=== PATIENT | female | born 1950 | race Caucasian/White ===

== ENCOUNTER → 2018-04-22 13:54 | Outpatient (CLI) | payer OTHER, MEDICAID, SELFPAY ==
--- NOTE | 2018-04-22 | DI.US.S_ITS ---
PROCEDURE: US THYROID INDICATIONS: THYROID NODULE TECHNIQUE: Real-time scanning was performed of the thyroid gland, with image documentation. COMPARISON: None. FINDINGS: Right: Right thyroid lobe measures 4.5 x 2.1 x 2.1 cm in size. 1 x 1 x 0.9 cm heterogeneously hypoechoic nodule is seen in midpole of right thyroid lobe. 1.2 x 1.9 x 1.1 cm heterogeneously hypoechoic solid-appearing nodule is noted in lower pole of right thyroid lobe. Vascularities are seen within above-mentioned right thyroid lobe nodules. Left: Left thyroid lobe measures 4.9 x 2.4 x 2 cm in size. 2.4 x 2 x 1.7 cm heterogeneously hypoechoic and solid-appearing nodule is noted in mid to lower pole of left thyroid lobe. Vascularity is seen within left thyroid lobe nodule. Isthmus: Isthmus measures 2 mm in thickness. No gross abnormality seen. IMPRESSION: 1. Bilateral solid-appearing hypoechoic nodules more prominent in size on the left side mid to lower pole. Given its size, consider fine needle aspiration of the left thyroid lobe nodule for more definitive diagnosis. Dictated by: Jorge Young M.D. on 04/22/2018 at 16:04 Approved by: Jorge Young M.D. on 04/22/2018 at 16:10
== END ==
PROVIDERS: PCP Nurse Practitioner Family; Visit Provider Nurse Practitioner Family
DX: E04.2 Nontoxic multinodular goiter (principal)
CPT/HCPCS: 76536

== ENCOUNTER → 2018-05-08 09:33 | Outpatient (CLI) | payer OTHER, MEDICAID, SELFPAY ==
--- NOTE | 2018-05-08 | DI.MG.S_ITS ---
UNILATERAL RIGHT DIGITAL SCREENING MAMMOGRAM 3D/2D WITH CAD POST MASTECTOMY: 05/08/2018 CLINICAL: Routine screening. Personal history of left breast cancer. Comparison is made to exams dated: 11/25/2012 mammogram, 07/16/2013 breast MRI, and 12/25/2012 breast MRI - [facility]. The tissue of the right breast is predominantly fatty. Current study was also evaluated with a Computer Aided Detection (CAD) system. There are grouped calcifications in the right breast upper outer aspect posterior depth. No other significant masses or calcifications are seen in the breast. IMPRESSION: INCOMPLETE: NEEDS ADDITIONAL IMAGING EVALUATION The grouped calcifications in the right breast are indeterminate. Additional views with possible ultrasound are recommended. This exam was interpreted at Station ID: [id number]. NOTE: For mammograms, a report in lay terms will be sent to the patient. Approximately 15% of breast malignancies will not be visualized mammographically. In the management of a palpable breast mass, a negative mammogram must not discourage biopsy of a clinically suspicious lesion. Electronically Signed By: Curt Bolton M.D. ecl/:05/08/2018 20:36:21 letter sent: Additional Imaging Needed ACR BI-RADS Category 0: Incomplete [id number]
--- NOTE | 2018-05-08 | PATH_ITS ---
Note [facility] Accession Number: [id number] TESTS RESULT FLAG UNITS REF RANGE LAB 01 LEFT THYROID NODULE DIAGNOSIS: 02 LEFT THYROID NODULE BETHESDA CATEGORY III. ATYPIA OF UNDETERMINED SIGNIFICANCE. COMMENT Most of the follicular cells in this specimen are benign appearing in a backgroud of scattered colloid and macrophages. A few groups of follicular cells show mild nuclear pleomorphism and mildly crowded nuclei with some nuclear overlapping. No nuclear clearing, grooves or inclusions are identified. A repeat aspirate after an appropriate interval of observation might be helpful if clinically indicated. This specimen will be fowarded for ThyraMIR/ThyGenX testing and the results reported separately. Pathologist ICD10: 02 R89.6 02 ADDENDUM REASON: This addendum is issued to report the results of ThyraMIR/ThyGenX assay performed at [facility], [place] (as [id number]); please see that report for additional details. The above diagnosis remains unchanged. . THYAMIR/THYGENX RESULTS SUMMARY: Left Thyroid FNA Nodule is very highly likely benign. . Test Results: Left Thyroid FNA ThyGenX Oncogene Panel Status: No mutations detected ThyraMIR microRNA Assembler [place] Pipes Status: Negative . Comment: Thyroid nodules showing indeterminate cytology with negative ThyGenX and negative ThyraMIR status are highly likely to be benign (94% likelihood of being benign. . . I05/23/2018 Addendum Electronically Signed by Guido Parker MD, PhD, Pathologist 02 Edyta Niño MD, Pathologist NPI- [id number] Po Peters, Sustainability Engineer ([facility]) 01 30 CC, COLORLESS, CLEAR RECEIVED: 5 ALCOHOL FIXED AND 5 QUICK STAINED SLIDES. /VDU FLAG LEGEND: L-Low Normal,H-High Normal,LL-Alert Low,HH-Alert High <-Panic Low,>-Panic High,A-Abnormal,AA-Critical Abnormal Performed at: 01 =Z [facility] [address] [place] [address] [address], [place] [address] Josue Jha MD, 02 [facility] [place] [address] [place] [id number] Jose Armando Sawant MD, Performed at: [address] [facility] [address], [place], [place] [id number] MD Josue Jha MD Phone: [phone]
--- NOTE | 2018-05-08 | DI.US.S_ITS ---
PROCEDURE: US FINE NEEDLE ASPIRATION INDICATIONS: LEFT THYROID NODULE TECHNIQUE: The indications, alternatives, benefits, risks, and complications of the procedure were explained to the patient. Written informed consent was obtained and placed in the chart. The thyroid region was examined sonographically and a site was chosen for ultrasound guided percutaneous sampling. The skin was prepared and draped in the usual fashion, and anesthetized with 1% lidocaine infiltrated from the skin down to the thyroid gland. Multiple passes were then performed, with contents emptied into an appropriate pathology specimen container. A bandage was applied to the area of access at completion of the study. COMPARISON: None. FINDINGS: Location(s) of lesion(s) sampled: Left thyroid lobe dominant nodule [place]: 25 gauge hypodermic needles. Number of passes: 6 Medications: 1% lidocaine for local anaesthesia. Complications: None. IMPRESSION: Successful ultrasound-guided thyroid nodule fine needle aspiration, with cytology results pending. Please see chart below for management recommendations based on cytology results. [place] [facility] ReportingRecommendationsNon-diagnostic* Repeat US-guided FNA, with on-site cytology evaluation if possible. * Repeated non-diagnostic nodules without high suspicion US features: close observation vs surgical consult. * Consider surgery if nodule has high suspicion US features, grows >20% in 2 dimensions on followup, or patient has clinical risk factors for malignancy. Benign* If nodule has high suspicion US features: repeat US and FNA within 12 months. * If nodule has low to intermediate suspicion US features: repeat US at 12-24 months. If nodule grows (20% increase in at least 2 dimensions, with minimal increase of 2 mm or >50% change in volume), or development of new suspicious US features, then repeat FNA or continue followup. * If nodule has very low suspicion US features: followup US at >24 months. Atypia of undetermined significance, follicular lesion of undetermined significanceRepeat FNA, molecular testing, followup US, or surgical consult.Follicular neoplasm, suspicious for follicular neoplasmSurgical consult; also consider molecular testing. Suspicious for malignancySurgical consult.MalignantSurgical consult. Dictated by: Juan Hussein M.D. on 05/08/2018 at 14:57 Approved by: Juan Hussein M.D. on 05/08/2018 at 14:58
== END ==
PROVIDERS: PCP Nurse Practitioner Family; Visit Provider Nurse Practitioner Family
DX: Z12.31 Encounter for screening mammogram for malignant neoplasm of breast (principal); E04.1 Nontoxic single thyroid nodule; Z85.3 Personal history of malignant neoplasm of breast; M85.851 Other specified disorders of bone density and structure, right thigh; Z78.0 Asymptomatic menopausal state; Z82.62 Family history of osteoporosis
CPT/HCPCS: 10022; 76942; 77063; 77065; 77080

== ENCOUNTER → 2018-05-27 09:15 | Outpatient (CLI) | payer OTHER, MEDICAID, SELFPAY ==
--- NOTE | 2018-05-27 | DI.MG.S_ITS ---
UNILATERAL RIGHT DIGITAL DIAGNOSTIC MAMMOGRAM 3D/2D WITH ADDITIONAL VIEWS: 05/27/2018 CLINICAL: Additional evaluation requested from prior study. Personal history of breast cancer. Comparison is made to exams dated: 05/08/2018 mammogram - [facility], 04/08/2013 ultrasound, and 11/28/2012 mammogram - [facility]. The tissue of the right breast is heterogeneously dense. This may lower the sensitivity of mammography. There are clustered punctate calcifications in the right breast at 11 o'clock posterior depth. No other significant masses or calcifications are seen in the breast. IMPRESSION: PROBABLY BENIGN The clustered punctate calcifications in the right breast are probably benign. A follow-up mammogram in 6 months is recommended to demonstrate stability. This exam was interpreted at Station ID: [id number]. NOTE: For mammograms, a report in lay terms will be sent to the patient. Approximately 15% of breast malignancies will not be visualized mammographically. In the management of a palpable breast mass, a negative mammogram must not discourage biopsy of a clinically suspicious lesion. Electronically Signed By: Kimberly copeland/:05/27/2018 09:57:23 letter sent: Followup Recommended ACR BI-RADS Category 3: Probably benign [id number]
== END ==
PROVIDERS: PCP Nurse Practitioner Family; Visit Provider Nurse Practitioner Family
DX: R92.1 Mammographic calcification found on diagnostic imaging of breast (principal); Z85.3 Personal history of malignant neoplasm of breast
CPT/HCPCS: 77065; G0279

== ENCOUNTER → 2018-12-09 08:50 | Outpatient (CLI) | payer OTHER, MEDICAID, SELFPAY ==
--- NOTE | 2018-12-09 | DI.MG.S_ITS ---
UNILATERAL RIGHT DIGITAL DIAGNOSTIC MAMMOGRAM 3D/2D SHORT-TERM FOLLOW-UP POST MASTECTOMY: 12/09/2018 CLINICAL: Patient returns for a 6 month follow up of the right breast. Family history of breast cancer. Personal history of breast cancer. Comparison is made to exams dated: 05/27/2018 mammogram, 05/08/2018 mammogram - [facility], and 11/28/2012 mammogram - [facility]. The tissue of right breast is heterogeneously dense. This may lower the sensitivity of mammography. There are a clustered punctate calcifications in the right breast at 11 o'clock posterior depth. These are not significantly changed. No evidence for associated architectural distortion or developing asymmetry. No other significant masses or calcifications are seen in the breast. IMPRESSION: PROBABLY BENIGN The clustered punctate calcifications in the right breast are not significantly changed in mammographic appearance and are probably benign. A follow-up right mammogram in 6 months is recommended to demonstrate stability. This exam was interpreted at Station ID: [id number]. NOTE: For mammograms, a report in lay terms will be sent to the patient. Approximately 15% of breast malignancies will not be visualized mammographically. In the management of a palpable breast mass, a negative mammogram must not discourage biopsy of a clinically suspicious lesion. Electronically Signed By: Tim Molina M.D. aty/:12/09/2018 09:45:32 letter sent: Followup Recommended ACR BI-RADS Category 3: Probably benign [id number]
== END ==
PROVIDERS: PCP Nurse Practitioner Family; Visit Provider Nurse Practitioner Family
DX: R92.1 Mammographic calcification found on diagnostic imaging of breast (principal); Z85.3 Personal history of malignant neoplasm of breast; Z80.3 Family history of malignant neoplasm of breast
CPT/HCPCS: 77065; G0279

== ENCOUNTER → 2019-06-27 12:44 | Outpatient (CLI) | payer OTHER, MEDICAID, SELFPAY ==
--- NOTE | 2019-06-27 | DI.MG.S_ITS ---
UNILATERAL RIGHT DIGITAL DIAGNOSTIC MAMMOGRAM 3D/2D SHORT-TERM FOLLOW-UP POST MASTECTOMY: 06/27/2019 CLINICAL: Patient returns for a 6 month follow up of the right breast. Comparison is made to exams dated: 12/09/2018 mammogram, 05/27/2018 mammogram, and 05/08/2018 mammogram - [facility]. The tissue of right breast is heterogeneously dense. This may lower the sensitivity of mammography. Previously identified grouped punctate calcifications in the superior lateral right breast at posterior depth (described as being near 11 o'clock posterior depth on comparison exam of 12/09/18) are stable to prior comparison exams. IMPRESSION: PROBABLY BENIGN Previously identified grouped punctate calcifications in the superior lateral right breast at posterior depth (described as being near 11 o'clock posterior depth on comparison exam of 12/09/18) are stable to prior comparison exams. A follow-up mammogram in 6 months is recommended to demonstrate continued stability. The patient was advised to monitor her breasts and to return sooner for reevaluation if she feels anything grow or change in her breasts. This exam was interpreted at Station ID: [id number]. NOTE: For mammograms, a report in lay terms will be sent to the patient. Approximately 15% of breast malignancies will not be visualized mammographically. In the management of a palpable breast mass, a negative mammogram must not discourage biopsy of a clinically suspicious lesion. Electronically Signed By: Curt Bolton M.D. ecl/:06/27/2019 14:35:58 letter sent: Followup Recommended ACR BI-RADS Category 3: Probably benign [id number]
== END ==
PROVIDERS: PCP Nurse Practitioner Family; Visit Provider Nurse Practitioner Family
DX: R92.8 Other abnormal and inconclusive findings on diagnostic imaging of breast (principal); R92.1 Mammographic calcification found on diagnostic imaging of breast
CPT/HCPCS: 77065; G0279

== ENCOUNTER → 2019-09-01 08:40 | Outpatient (CLI) | payer OTHER, MEDICAID, SELFPAY ==
--- NOTE | 2019-09-01 | DI.US.S_ITS ---
ULTRASOUND OF LEFT BREAST AND AXILLA: 09/01/2019 CLINICAL: Palpable left breast lump at mastectomy site. Comparison is made to exams dated: 07/16/2013 breast MRI, 12/25/2012 breast MRI, 11/28/2012 mammogram, and 11/25/2012 mammogram - [facility]. Color flow and real-time ultrasound of the left breast axilla were performed. Kraft scale images of the real-time examination were reviewed. The patient is status post mastectomy left breast. Superior to the left mastectomy scar at the patient directed area of palpable concern, there are two adjacent oval, hypoechoic masses measuring 10mm x 9mm x 9mm and 12 mm x7 mm x 8mm, respectively. There is adjacent vascularity. No posterior acoustic features. Visualized regional lymph nodes appear normal. No significant abnormalities were seen sonographically in the left axilla. IMPRESSION: SUSPICIOUS OF MALIGNANCY Two adjacent oval hypoechoic masses noted superior to left mastectomy scar and correlating with patient directed area of palpable concern are suspicious for tumor recurrence. No axillary adenopathy seen. Recommend ultrasound guided biospy for further evaluation. Findings and recommendations were discussed with the patient by Dr. Hussein during today's visit. This exam was interpreted at Station ID: [id number]. Electronically Signed By: Tim Molina M.D. aty/:09/01/2019 10:30:25 letter sent: Biopsy Required Ultrasound BI-RADS: 4c High suspicion of malignancy
== END ==
PROVIDERS: PCP Nurse Practitioner Family; Visit Provider Nurse Practitioner Family
DX: N63.20 Unspecified lump in the left breast, unspecified quadrant (principal); Z90.12 Acquired absence of left breast and nipple
CPT/HCPCS: 76642

== ENCOUNTER → 2019-09-19 10:16 | Outpatient (CLI) | payer OTHER, MEDICAID, SELFPAY ==
--- NOTE | 2019-09-19 | DI.US.S_ITS ---
MULTIPLE ULTRASOUND GUIDED BIOPSIES LEFT BREAST USING VACUUM DEVICE WITH MARKING DEVICES INSERTED: 09/19/2019 CLINICAL: Palpable left breast lump. Palpable left breast lump. Post left mastectomy. PATIENT CONSENT: Risks (minor bleeding, infection, vasovagal reaction and repeat procedure), benefits and alternatives were explained to the patient and written informed consent was obtained. Correlation is made to exam dated: 09/01/2019 [facility]. An ultrasound guided biopsy using real-time ultrasound was performed for the irregular shaped mass located in the left breast at 1 o'clock posterior depth (designated #1 4 cm above scar). The skin was prepped in the usual manner. Local anesthetic was administered to the access site. A small incision was made in the breast. The abnormality was approached from the lateral aspect. A biopsy needle was placed adjacent to the abnormality under ultrasound guidance. Once the needle was documented to be in the correct location, eight specimens were obtained using the Mammotome biopsy system. A Vision clip was inserted into the biopsy cavity. The specimens were sent to the laboratory for pathological analysis. A second ultrasound guided biopsy using real-time ultrasound was performed for the irregular shaped mass located in the left breast 1 o'clock (designated #2, 5 cm above scar). The skin was prepped in the usual manner. Local anesthetic was administered to the access site. A small incision was made in the breast. The abnormality was approached from the lateral aspect. A biopsy needle was placed adjacent to the abnormality under ultrasound guidance. Once the needle was documented to be in the correct location, seven specimens were obtained using the Mammotome biopsy system. A Celero clip was inserted into the biopsy cavity. The specimens were sent to the laboratory for pathological analysis. IMPRESSION: ULTRASOUND GUIDED BIOPSY MALIGNANT Ultrasound guided biopsy of the mass in the left breast at 1 o'clock posterior depth was successful. Pathology indicates malignant adenocarcinoma (ADCA). Pathology results are concordant with imaging findings. Ultrasound guided biopsy of the mass in the left axillary tail was successful. Pathology indicates malignant adenocarcinoma (ADCA). Pathology results are concordant with imaging findings. This exam was interpreted at Station ID: [id number]. Babatunde ospina,min/:09/24/2019 16:26:05
--- NOTE | 2019-09-19 | PATH_ITS ---
[facility] Accession Number: [id number] . 01 Material submitted: . PART A: breast - LT BREAST MASS 1 4CM ABOVE SCAR PART B: breast - LT BREAST MASS 2 5CM ABOVE SCAR . 01 Diagnosis: A. 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 Prognostic markers (block A1): a. Estrogen receptor status: Positive (99%, Strong). b. Progesterone receptor status: Positive (95%, Strong). c. HER2 status: Equicoval for protein overexpression by immunohistochemistry; Her2 gene amplification by FISH studies are pending and results will be reported in an addendum. See comment. . B. 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 See comment. [facility] 09/23/2019 2144 Local . 01 Comment: The biopsies from parts A and B demonstrate invasive adenocarcinoma into skeletal muscle and are both morphologically similar. No breast glandular tissue is identified in either biopsies. The invasive carcinoma is moderately differentiated ductal adenocarcinoma (Emilie combined histologic grade total score of 7/9, with little or no glandular differentiation (3/3), high nuclear pleomorphism (3/3), and low mitotic activity (1/3)). The findings are consistent with recurrence of the patient's reported breast primary. . 01 Electronically signed: Obi Gupta MD, Pathologist NPI- [id number] . 01 Gross description: . Received two formalin-filled containers, both labeled with the patient's name: A. In a container labeled LT breast mass 1 of 2, the sample is received with a plastic filter in container, sample loose in container and consists of multiple fragments of tissue and blood which measure 2.0 x 1.0 x 0.2 cm in aggregate. The specimen is filtered and entirely submitted in cassette A1. B. In a container labeled LT breast mass 2 of 2, the specimen is received with a plastic filter in container, sample loose in container and consists of multiple portions of tissue and clotted blood which measure 1.5 x 1.0 x 0.2 cm in aggregate. The specimen is entirely submitted in cassette B1. Collection date per container: 09-19-19. No collection time per container. Possible collection time: 12:19. Total fixation time: Approximately 38 hours. ([id number]) /Kenan 09/23/2019 2144 Local . 01 Microscopic: . Predictive marker immunohistochemical studies are performed on block A1 with the invasive carcinoma showing the following results: . Estrogen receptor (SP1): Positive (99% tumor cells staining; staining intensity: Strong). Progesterone receptor (1E2): Positive (95% tumor cells staining; staining intensity: Strong). Her2 (4B5): Equivocal for protein overexpression (2+); Her2 gene amplification studies by FISH are pending and results will be reported in an addendum. . Internal controls for ER and NH are not present (as is expected, no breast glandular tissue identified). . Cold ischemic time is <5 minutes. The scoring criteria for breast biomarkers by immunohistochemistry is based on the ASCO/CAP guidelines (Amanda AC et al J Clin Oncol 2018: 2017 10;36(20):6286-2380 and Usha ME et al, Arch Pathol Lab Med 2009;134(6):907-22). Deparaffinized sections of formalin fixed tissue (along with appropriate positive controls) are incubated with the above antibody(s). Using the automated Bevier stainer, tissue is incubated with the designated antibody which is then localized by a non-biotin, dual polymer detection system. The external controls are reviewed for appropriate reactivity and found to be adequate. Results on the target cell population are indicated above. These tests have not been validated on decalcified tissue. This test was developed and its performance characteristics determined by [employer]. It has not been cleared or approved by the U.S. Food and Drug Administration. The FDA has determined that such clearance or approval is not necessary. This test is used for clinical purposes. It should not be regarded as investigational or for research. . 01 Pathologist provided ICD-10: C50.912 . 01 CPT . 725062, 769634, 124879, 627715, 473046 Performed at: [address] [id number] MD Josue Jha MD Phone: [phone]
== END ==
PROVIDERS: PCP Nurse Practitioner Family; Visit Provider Nurse Practitioner Family
DX: C50.812 Malignant neoplasm of overlapping sites of left female breast (principal); Z17.0 Estrogen receptor positive status [ER+]; Z90.12 Acquired absence of left breast and nipple
CPT/HCPCS: 19083; 19084

== ENCOUNTER 2019-09-19 15:11 | Emergency (ER) | payer OTHER, MEDICAID, SELFPAY ==
[2019-09-19 15:19] VITALS: BP 169/97; PULSE 96; RESP 18; TEMP 35.9; O2SAT 98; BMI 26.5
--- NOTE | 2019-09-19 15:30 | DI.RAD.S_ITS ---
PROCEDURE: XR CHEST 2V INDICATIONS: CHEST XRAY TECHNIQUE: 2 views of the chest were acquired. COMPARISON: None. FINDINGS: Surgical changes and devices: There appears to have been a previous left-sided mastectomy. Lungs and pleura: Lungs are clear. No pleural effusions or pneumothorax. Mediastinum: Mediastinal contours are normal. Heart size is normal. Moderate-sized hiatal hernia is present with an associated air-fluid level. Bones and chest wall: No suspicious bony abnormalities. Soft tissues appear unremarkable. IMPRESSION: No acute cardiopulmonary process is evident. Dictated by: Carlyle Johnson M.D. on 09/19/2019 at 15:05 Approved by: Carlyle Johnson M.D. on 09/19/2019 at 15:06
--- NOTE | 2019-09-19 16:15 | ED.CHESTPAIN ---
HPI - Chest Pain General Chief Complaint: Chest Pain Stated Complaint: recent biopsy on L side chest, CP and site bleedin Time Seen by Provider: 09/19/19 16:15 Source: patient Mode of arrival: Ambulatory Limitations: no limitations History of Present Illness HPI narrative: 69-year-old female comes emergency department with complaint of chest pain. Patient states she had a biopsy this morning at 11:00 a.m. for 2 tumors that were noted in her left chest. Patient states she was sitting at home, she was not active or doing anything about an hour ago and had a sudden onset of chest kind of across her chest that felt sort of like muscles were christie. She states she did feel a bit short of breath. She states movement does seem to kind of bother it but she wasn't moving around when it happened she states she has felt cold while she is in the department but no chills or fever. She walked across the street from her home to hospital and states she did not feel short of breath with that activity. No nausea, no vomiting. She felt a little lightheaded but no syncope or presyncope. Patient states with her prior lumpectomy and mastectomy afterwards she did have syncope in a big drop in her blood pressure so she was concerned that might be part was happening today patient did reach over to check this site and noted that there was some blood from the biopsy site although she states it seems to have stopped. Patient had a lumpectomy in 1998, mastectomy in 2011 she did not have chemo or radiation since then she has had hysterectomy no other past surgical history. She has no history of [place], PE, coronary artery disease no hypertension, dyslipidemia or diabetes. She does not take any medications regularly, no aspirin or other blood thinners. No tobacco, illicit or street drugs. 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 Related Data Home Medications Medication Instructions Recorded Confirmed No Known Home Medications 09/19/19 09/19/19 Allergies Allergy/AdvReac Type Severity Reaction Status Date / Time No Known Drug Allergies Allergy Verified 09/19/19 15:19 Review of Systems Review of Systems ROS Unobtainable: All systems reviewed & are unremarkable except as noted in HPI and below Patient History Medical History (Updated 09/19/19 @ 17:53 by Laura Saucedo DO) Breast cancer (Acute) Surgical History (Updated 09/19/19 @ 16:27 by Laura Saucedo DO) H/O lumpectomy (Acute) H/O mastectomy (Acute) Social History (Updated 09/19/19 @ 16:27 by Laura Saucedo DO) Smoking Status: Never smoker alcohol intake: never substance use type: does not use Smoking Status: Never smoker Substance Use Type: does not use Exam Narrative Exam Narrative: GENERAL: Alert and oriented x three, well-nourished, well-appearing female in mild distress. HEENT: Head normocephalic, atraumatic, EOMI, pupils reactive, face symmetric, moist mucous membranes NECK: Supple, full range of motion CARDIOVASCULAR: Regular rate and rhythm without murmurs, rubs or gallops. Patient has changes to her chest wall consistent with left mastectomy. Patient's incision site bandage was removed. It's no longer actively bleeding. Patient does have a puncture which is a chordoma cm in size little bit jagged which is likely white blood. There's no hematoma, there's no fluid collection or ecchymosis noted. Patient is tender around that area. No swelling of the axilla, underneath the site or elsewhere. No warmth, redness or other drainage noted. Patient does not have any crepitus. RESPIRATORY: Breath sounds equal bilaterally, no wheezes rales or rhonchi. ABDOMEN: Soft, nontender. Normoactive bowel sounds all 4 quadrants. No guarding or rebound, rigidity, no mass : No CVA tenderness EXTREMITIES: Normal range of motion, no clubbing or edema. Neurovascularly intact NEUROLOGICAL: Cranial nerves II through XII grossly intact. Moving all extremities SKIN: Warm, dry, no petechiae, no rashes or lesions. Initial Vital Signs Initial Vital Signs: Vital Signs Temperature 96.7 F L 09/19/19 15:19 Pulse Rate 96 H 09/19/19 15:19 Respiratory Rate 18 09/19/19 15:19 Blood Pressure 169/97 H 09/19/19 15:19 Pulse Oximetry 98 09/19/19 15:19 Scores HEART Score Heart Score history: Slightly Suspicious Heart Score EKG: Normal Heart Score Age: > or = 65 years old Heart Score risk factors: No known risk factors Heart Score troponin: < or = to normal limit Heart Score Total: 2 Course Orders Ordered: ED Orders 09/19/19 15:23 EKG-12 Lead Stat 09/19/19 15:30 Chest [XR chest 2V] Stat 09/19/19 16:36 B Type Natriuretic Peptide Stat Complete Blood Count AUTO DIFF Stat Comprehensive Metabolic Panel Stat Lipase Stat Partial Thromboplastin Time Stat Prothrombin Time INR Stat Troponin & CK Cardiac Panel Stat 09/19/19 16:58 EKG-12 Lead Stat Discontinued Medications Acetaminophen (Tylenol) 975 mg PO NOW ONE Stop: 09/19/19 16:40 Last Admin: 09/19/19 16:43 Dose: 975 mg Documented by: JUDI Potassium Chloride (Potassium Chloride) 40 meq PO NOW ONE Stop: 09/19/19 17:35 Last Admin: 09/19/19 18:10 Dose: Not Given Documented by: PERRY Potassium Chloride (Klor-Con M20) 40 meq PO NOW ONE Stop: 09/19/19 18:05 Last Admin: 09/19/19 18:09 Dose: 40 meq Documented by: PERRY Vital Signs Vital signs: Vital Signs - 8 hr 09/19/19 15:19 09/19/19 16:38 09/19/19 16:39 Temperature 96.7 F L Pulse Rate 96 H 82 80 Respiratory Rate 18 13 14 Blood Pressure 169/97 H Blood Pressure [Left Arm] 160/80 H 160/80 H Pulse Oximetry 98 97 97 09/19/19 17:00 09/19/19 18:11 Temperature Pulse Rate 75 69 Respiratory Rate 17 13 Blood Pressure Blood Pressure [Left Arm] 141/73 H 147/85 H Pulse Oximetry 94 97 MDM - Chest Pain Lab Data Result diagrams: 09/19/19 16:36 09/19/19 16:36 Labs: Lab Results 09/19/19 09/19/19 09/19/19 Range/Units 16:36 16:36 16:36 WBC 7.8 (4.5-11.0) X10^3/uL RBC 4.97 (4.0-5.2) X10^6/uL Hgb 15.7 (12.0-16.0) g/dL Hct 45.4 (36-46) % MCV 91.2 (80-100) fL MCH 31.6 (26-34) PG MCHC 34.6 (30-36) % RDW 13.0 (11.6-14.8) % Plt Count 273 (150-400) X10^3/uL Neut % (Auto) 71.4 (50-75) % Lymph % (Auto) 20.2 L (25-40) % [place] % (Auto) 6.8 (3-14) % Eos % (Auto) 0.5 L (2-4) % Baso % (Auto) 1.1 (0-2) % Neut # (Auto) 5600 (3578-8882) /uL Lymph # (Auto) 1600 (6482-0442) /uL [place] # (Auto) 500 (0-900) /uL Eos # (Auto) 0 (0-450) /uL Baso # (Auto) 100 (0-100) /uL PT 11.2 (10.1-12.7) SECONDS INR 1.0 (0.9-1.3) APTT 29 (26.4-36.2) SECONDS Sodium 140 (137-145) mmol/L Potassium 3.1 L (3.4-5.1) mmol/L Chloride 106 (98-107) mmol/L Carbon Dioxide 23 (22-32) mmol/L BUN 15 (7-17) mg/dL Creatinine 0.60 (0.52-1.04) mg/dL Estimated GFR > 60.0 (>60) mL/min BUN/Creatinine Ratio 25.0 H (6-22) Glucose 121 H (80-110) mg/dL Calcium 9.4 (8.4-10.2) mg/dL Total Bilirubin 0.5 (0.2-1.3) mg/dL AST 23 (14-36) IU/L ALT 23 (<35) IU/L Alkaline Phosphatase 98 (38-126) U/L Total Creatine Kinase 115 (30-135) U/L CK-MB (CK-2) 0.73 (<2.37) ng/mL CK-MB (CK-2) Rel Index 0.6 L (1.5-5.0) % Troponin I < 0.012 (0.01-0.034) ng/mL B-Natriuretic Peptide < 100 (<100) Total Protein 7.4 (6.3-8.2) g/dL Albumin 4.4 (3.5-5.0) g/dL Globulin 3.0 (1.7-4.1) g/dL Albumin/Globulin Ratio 1.5 (1.0-2.8) Lipase 171 (23-300) U/L Imaging Data Chest x-ray: Radiologist's Impression: [address] [id number] XRay Report Signed Patient: Darlin Sims KMR#: [id number] : 1950cct:[id number] Age/Sex: 69 / FDate of Service: 09/19/19 Loc: ED Accession Number: [id number] Procedure: XR chest 2V Ordering Provider: Laura Saucedo D.O. PROCEDURE: XR CHEST 2V INDICATIONS: CHEST XRAY TECHNIQUE: 2 views of the chest were acquired. COMPARISON: None. FINDINGS: Surgical changes and devices: There appears to have been a previous left-sided mastectomy. Lungs and pleura: Lungs are clear. No pleural effusions or pneumothorax. Mediastinum: Mediastinal contours are normal. Heart size is normal. Moderate-sized hiatal hernia is present with an associated air-fluid level. Bones and chest wall: No suspicious bony abnormalities. Soft tissues appear unremarkable. IMPRESSION: No acute cardiopulmonary process is evident. Dictated by: Carlyle Johnson M.D. on 09/19/2019 at 15:05 Approved by: Carlyle Johnson M.D. on 09/19/2019 at 15:06 ECG Data Attestation: I personally reviewed and interpreted this ECG as follows: Prior ECG tracings: not available for review Interpretation: Sinus rhythm rate 87 RI 175 QRS of 95 QTC of 428. No ST elevation depression appreciated. Patient does not have prior EKGs for comparison. EKG#2, rhythm rate of 71 P are 189 QRS of [address] depression. Patient's EKG appears similar to prior. MDM Narrative Medical decision making narrative: Patient comes in with concern for chest pain after a biopsy patient had a breast biopsy via ultrasound. It does not appear was a CT guided biopsy. Patient has a negative chest x-ray, EKG does not show any acute changes lab work was ordered. Labs show normal CBC, coags, potassium 3.1 but otherwise normal electrolytes. Glucose is twenty-one. Troponin is negative with BNP less than 100. Patient is quite tender on palpation of the chest wall. I suspect that some of this is secondary to her biopsy today and patient has had increasing pain and at the biopsy site as the lidocaine has worn off. Discussed with patient she feels comfortable returning home she did not want anything in addition to Tylenol at this time for pain. We reviewed her lab work, imaging and EKG findings, discussed s/s and reasons to return emergently. Discharge Plan Departure Patient Disposition: Home Clinical Impression: Chest wall pain, Hypokalemia Discharge Date/Time: 09/19/19 18:22 Instructions: DI for Chest Pain Activity Restrictions/Additional Instructions: Follow-up with primary care or stop by the office Sunday to discuss who is taking over care for Kym Avila in your office. Continue precautions as directed by radiology. You may take up to a 1000 mg every 8 hours as needed for pain. Return to the ER for fevers greater 100.4 F, rapidly worsening pain, new shortness of breath, lightheadedness or passing out, new chest pain or worsening chest pain or pressure, persistent vomiting, new swelling in her extremities, new bruising or rapidly worsening swelling of your chest wall, the area surrounding your biopsy site or continued bleeding. Prescriptions: No Action No Known Home Medications RF: 0 Referrals: Kym Avila ARNP [Primary Care Provider] -
[2019-09-19 16:38] VITALS: BP 160/80; PULSE 82; RESP 13; O2SAT 97
[2019-09-19 16:39] VITALS: BP 160/80; PULSE 80; RESP 14; O2SAT 97
[2019-09-19 16:42] LABS: Add Manual Diff / Slide Review NO; Basophils Absolute Auto 100 /uL (0-100); Basophils Percent Auto 1.1 % (0-2); Eosinophils Absolute Auto 0 /uL (0-450); Eosinophils Percent Auto 0.5 % (2-4); Hematocrit 45.4 % (36-46); Hemoglobin 15.7 g/dL (12.0-16.0); Lymphocytes Absolute Auto 1600 /uL (1100-4500); Lymphocytes Percent Auto 20.2 % (25-40); Mean Corpuscular HGB Conc 34.6 % (30-36); Mean Corpuscular Hemoglobin 31.6 PG (26-34); Mean Corpuscular Volume 91.2 fL (80-100); Monocytes Absolute Auto 500 /uL (0-900); Monocytes Percent Auto 6.8 % (3-14); Neutrophils Absolute Auto 5600 /uL (1500-7000); Neutrophils Percent Auto 71.4 % (50-75); Platelet Count 273 X10^3/uL (150-400); Red Blood Cell Count 4.97 X10^6/uL (4.0-5.2); White Blood Cell Count 7.8 X10^3/uL (4.5-11.0)
[2019-09-19] MEDS: ACETAMINOPHEN 325 MG TABLET 975 MG PO (16:43)
[2019-09-19 16:49] LABS: Prothrombin Time 11.2 SECONDS (10.1-12.7)
[2019-09-19 16:51] LABS: PTT Partial Thromboplastin Tim 29 SECONDS (26.4-36.2)
[2019-09-19 16:55] LABS: Alanine Aminotransferase 23 IU/L (<35); Albumin 4.4 g/dL (3.5-5.0); Albumin Globulin Ratio 1.5 (1.0-2.8); Alkaline Phosphatase 98 U/L (38-126); Aspartate Aminotransferase 23 IU/L (14-36); Bilirubin Total 0.5 mg/dL (0.2-1.3); Blood Urea Nitrogen 15 mg/dL (7-17); Calcium 9.4 mg/dL (8.4-10.2); Carbon Dioxide 23 mmol/L (22-32); Chloride 106 mmol/L (98-107); Creatine Kinase 115 U/L (30-135); Estimated Glomerular Filt Rate > 60.0 mL/min (>60); Glucose 121 mg/dL (80-110); HEMOLYSIS < 15 (0-50); Lipase 171 U/L (23-300); Potassium 3.1 mmol/L (3.4-5.1); Sodium 140 mmol/L (137-145); Total Protein 7.4 g/dL (6.3-8.2)
[2019-09-19 17:00] VITALS: BP 141/73; PULSE 75; RESP 17; O2SAT 94
[2019-09-19 17:05] LABS: B Type Natriuretic Peptide < 100 (<100)
[2019-09-19 17:06] LABS: Troponin I < 0.012 ng/mL (0.01-0.034)
[2019-09-19 17:10] LABS: CKMB % Relative Index 0.6 % (1.5-5.0); Creatine Kinase MB 0.73 ng/mL (<2.37)
[2019-09-19] MEDS: POTASSIUM CHLORIDE 20 MEQ TAB 40 MEQ PO (18:09)
[2019-09-19 18:11] VITALS: BP 147/85; PULSE 69; RESP 13; O2SAT 97
== END 2019-09-19 18:22 | disposition home or self-care (01) ==
PROVIDERS: Emergency Provider Emergency Medicine; PCP Nurse Practitioner Family
DX: R07.89 Other chest pain (principal); R06.02 Shortness of breath; E87.6 Hypokalemia; C50.812 Malignant neoplasm of overlapping sites of left female breast; Z17.0 Estrogen receptor positive status [ER+]; Z90.12 Acquired absence of left breast and nipple
CPT/HCPCS: 19083; 19084; 36415; 71046; 80053; 82550; 82553; 83690; 83880; 84484; 85025; 85610; 85730; 93005; 99284; 99285

== ENCOUNTER → 2020-07-21 10:05 | Outpatient (CLI) | payer OTHER, MEDICAID, SELFPAY | PROVIDERS: PCP Nurse Practitioner Family; Referring Provider Internal Medicine; Visit Provider Family Medicine | DX: S21.102A Unspecified open wound of left front wall of thorax without penetration into thoracic cavity, initial encounter (principal); L59.8 Other specified disorders of the skin and subcutaneous tissue related to radiation; L58.9 Radiodermatitis, unspecified; Z92.3 Personal history of irradiation | CPT/HCPCS: 97597; 99204; 99213 ==

== ENCOUNTER → 2020-07-28 13:09 | Outpatient (CLI) | payer OTHER, MEDICAID, SELFPAY ==
--- NOTE | 2020-12-20 15:05 | ONC.SCHED ---
Left msg. to schedule patient for new consult on VM.
--- NOTE | 2020-12-21 13:11 | ONC.SCHED ---
Called to schedule new patient referral a 2nd time with it going to . Having trouble connecting with the patient. I reached out to the referring provider to see if they could contact her to let her know we are trying to reach her.
== END ==
PROVIDERS: PCP Nurse Practitioner Family; Referring Provider Nurse Practitioner Family; Visit Provider Family Medicine
DX: L59.8 Other specified disorders of the skin and subcutaneous tissue related to radiation (principal); S21.102A Unspecified open wound of left front wall of thorax without penetration into thoracic cavity, initial encounter; Z92.3 Personal history of irradiation
CPT/HCPCS: 97597

== ENCOUNTER → 2020-09-01 13:06 | Outpatient (CLI) | payer OTHER, MEDICAID, SELFPAY | PROVIDERS: PCP Internal Medicine; Referring Provider Internal Medicine; Visit Provider Internal Medicine | DX: M85.852 Other specified disorders of bone density and structure, left thigh (principal); Z78.0 Asymptomatic menopausal state; E07.9 Disorder of thyroid, unspecified; Z85.3 Personal history of malignant neoplasm of breast; Z82.62 Family history of osteoporosis | CPT/HCPCS: 77080 ==

== ENCOUNTER → 2021-01-03 16:06 | Outpatient (CLI) | payer OTHER, MEDICAID, SELFPAY ==
--- NOTE | 2021-01-03 16:07 | DI.MRI.S_ITS ---
PROCEDURE: MR HEAD/BRAIN WO/W CON INDICATIONS: 70-year-old female with cognitive decline and history of breast cancer TECHNIQUE: Noncontrast axial T1 spin echo, axial T2 fast spin echo, sagittal and axial FLAIR, coronal T2 fast spin echo, axial gradient echo, axial diffusion and ADC through the brain. After the administration of contrast, axial and coronal 3D VIBE or T1 spin echo with fat saturation through the brain. COMPARISON: None. FINDINGS: Cerebrum, Cerebellum and Brainstem: The diffusion sequence is normal without evidence of acute infarct. No intracranial hemorrhage, mass lesion or midline shift. There is a normal cerebral and cerebellar volume present. Mild cerebral and cerebellar volume loss multifocal small white matter hyperintensities in the deep and subcortical white matter consistent chronic ischemic change. Basal cisterns and foramen magnum contain appropriate anatomy and vascular flow voids. No evidence of dural or leptomeningeal thickening. Ventricles: Appropriate in size and position. No hydrocephalus. Skull Base: The bony sella, pituitary gland and infundibulum are unremarkable. Clivus and craniovertebral relationships are appropriate. Visualized portions of the seventh and eighth cranial nerve complexes and internal auditory canals are within normal limits. Scalp and Calvarium: The scalp is unremarkable. Underlying calvarium has an appropriate marrow signal. Paranasal Sinuses: Visualized sinuses are clear. Mastoids: Unremarkable as visualized. No mastoid effusion present. Orbits: The orbits, globes and ocular muscles are unremarkable. IMPRESSION: Mild atrophy and white matter chronic ischemic change without acute infarct, hemorrhage or mass lesion. Dictated by: Haseeb Figueroa M.D. on 01/03/2021 at 17:30 Approved by: Haseeb Figueroa M.D. on 01/03/2021 at 17:40
== END ==
PROVIDERS: PCP Internal Medicine; Referring Provider Internal Medicine; Visit Provider Internal Medicine
DX: R41.89 Other symptoms and signs involving cognitive functions and awareness (principal); C50.912 Malignant neoplasm of unspecified site of left female breast
CPT/HCPCS: 70553

== ENCOUNTER → 2021-01-07 11:53 | Outpatient (CLI) | payer OTHER, MEDICAID, SELFPAY ==
--- NOTE | 2021-01-07 11:54 | DI.CT.S_ITS ---
PROCEDURE: CT CHEST ABD PEL W CON INDICATIONS: Cough, SOB, abdominal pain, recurrent breast cancer TECHNIQUE: After the administration of oral and intravenous contrast, 5 mm thick sections acquired from the lung apices to the symphysis. 5 mm coronal and sagittal reformats were performed, with additional 7 mm coronal MIP reformats through the lungs. For radiation dose reduction, the following was used: automated exposure control, adjustment of mA and/or kV according to patient size. COMPARISON: Outside Film, NM, PET NECK TO MID THIGH, 12/11/2019, 11:41. Outside Film, CT, CT CHEST WITH CONTRAST, 10/31/2019, 10:13. FINDINGS: CHEST: Postsurgical changes related to left mastectomy. Lungs: Scattered subsegmental atelectasis and/or scarring. No focal consolidation. Pleura: No pleural effusions or pneumothorax. Heart: Heart size is normal. No pericardial effusion. Chest nodes: Normal. Thyroid gland: Heterogeneous appearance, which would be better assessed with ultrasound as clinically warranted Aorta: Normal. Pulmonary arteries: Normal. Esophagus: Large hiatal hernia. ABDOMEN: Liver: Hepatic steatosis. No focal hepatic lesion. Gallbladder: Unremarkable Bile ducts: Normal Pancreas: Normal Spleen: Normal Adrenal glands: Normal Kidneys: Normal. Stomach: Normal Bowel: Normal Other: No free fluid or air. Normal appendix. Abdominal nodes: Normal Aorta and IVC: Normal in size. Ventral wall: Normal PELVIS: Bladder: Normal. Large simple appearing cystic lesion in the right adnexal region measuring 7.4 x 5.4 cm. Please see the montage image for detailed locations and image/series numbers. This appears unchanged since 12/11/19. Inguinal: No hernia. Pelvic nodes: Normal. Bones: Spondylytic changes and facet arthropathy. No vertebral body compression fracture. IMPRESSION: Simple appearing large right adnexal cystic lesion. Technically cannot exclude ovarian neoplasm, especially given size. Please correlate clinically and recommend ultrasound evaluation/surveillance, and gynecological consultation. Consider correlation with CA 125 as needed. Large hiatal hernia Hepatic steatosis Heterogeneous thyroid, better assessed with ultrasound as clinically necessary. Dictated by: Babatunde Johnston M.D. on 01/07/2021 at 16:04 Approved by: Babatunde Johnston M.D. on 01/07/2021 at 16:11
== END ==
PROVIDERS: PCP Internal Medicine; Referring Provider Internal Medicine; Visit Provider Internal Medicine
DX: C50.919 Malignant neoplasm of unspecified site of unspecified female breast (principal); N94.89 Other specified conditions associated with female genital organs and menstrual cycle; R05 Cough; R06.02 Shortness of breath; R10.9 Unspecified abdominal pain; K44.9 Diaphragmatic hernia without obstruction or gangrene; K76.0 Fatty (change of) liver, not elsewhere classified
CPT/HCPCS: 71260; 74177

== ENCOUNTER → 2021-02-27 09:48 | Outpatient (CLI) | payer OTHER, MEDICAID, SELFPAY ==
--- NOTE | 2021-02-27 09:49 | DI.RAD.S_ITS ---
PROCEDURE: XR TIBIA FIBULA LT 2V INDICATIONS: L tibia injury, hematoma TECHNIQUE: 2 views of the tibia and fibula were acquired. COMPARISON: None. FINDINGS: Bones: No fractures or dislocations. No suspicious bony lesions. Soft tissues: No suspicious soft tissue calcifications or masses. IMPRESSION: Normal for age, source of current pain after trauma symptoms is not seen. Dictated by: Juan Hussein M.D. on 02/27/2021 at 10:48 Approved by: Juan Hussein M.D. on 02/27/2021 at 10:49
== END ==
PROVIDERS: PCP Internal Medicine; Referring Provider Physician Assistant; Visit Provider Physician Assistant
DX: S89.92XA Unspecified injury of left lower leg, initial encounter (principal); X58.XXXA Exposure to other specified factors, initial encounter
CPT/HCPCS: 73590

== ENCOUNTER → 2021-07-05 11:37 | Outpatient (CLI) | payer OTHER, MEDICAID, SELFPAY ==
--- NOTE | 2021-07-05 | DI.RAD.S_ITS ---
PROCEDURE: XR KNEE LT 3V INDICATIONS: LEFT KNEE PAIN TECHNIQUE: 3 views of the knee were acquired. COMPARISON: None. FINDINGS: Bones: No fractures or dislocations. No suspicious bony lesions. A fabella is noted. Mild osteophytosis about the femoral patellar compartment. A superior patellar enthesophyte is seen. Soft tissues: Suprapatellar soft tissue fullness, compatible with joint effusion. No suspicious soft tissue calcifications. IMPRESSION: No acute osseous abnormality. Dictated by: Alex Carrillo M.D. on 07/05/2021 at 12:59 Approved by: Alex Carrillo M.D. on 07/05/2021 at 13:00
== END ==
PROVIDERS: PCP Internal Medicine; Referring Provider Internal Medicine; Visit Provider Internal Medicine
DX: S89.92XA Unspecified injury of left lower leg, initial encounter (principal); M25.562 Pain in left knee; R60.9 Edema, unspecified; X58.XXXA Exposure to other specified factors, initial encounter
CPT/HCPCS: 73562

== ENCOUNTER → 2021-07-30 14:35 | Outpatient (CLI) | payer OTHER, MEDICAID, MEDICARE, SELFPAY ==
--- NOTE | 2021-07-30 | DI.MG.S_ITS ---
UNILATERAL RIGHT DIGITAL SCREENING MAMMOGRAM 3D/2D WITH CAD: 07/30/2021 CLINICAL: Routine screening. Personal history of left breast cancer. Comparison is made to exams dated: 11/01/2020 breast MRI, 04/07/2020 breast MRI, 11/11/2019 mammogram - [facility], 06/27/2019 mammogram, and 05/27/2018 mammogram - [facility]. The tissue of right breast is heterogeneously dense. This may lower the sensitivity of mammography. Current study was also evaluated with a Computer Aided Detection (CAD) system. There are benign calcifications in the right breast. No significant masses, calcifications, or other findings are seen in the breast. There has been no significant interval change. IMPRESSION: BENIGN There is no mammographic evidence of malignancy. A 1 year screening mammogram is recommended. This exam was interpreted at Station ID: [id number]. NOTE: For mammograms, a report in lay terms will be sent to the patient. Approximately 15% of breast malignancies will not be visualized mammographically. In the management of a palpable breast mass, a negative mammogram must not discourage biopsy of a clinically suspicious lesion. Electronically Signed By: Cristina vasquez/roxann:08/01/2021 11:11:39 letter sent: Normal Exam ACR BI-RADS Category 2: Benign Finding(s) 3342F
== END ==
PROVIDERS: PCP Internal Medicine; Referring Provider Internal Medicine; Visit Provider Internal Medicine
DX: Z12.31 Encounter for screening mammogram for malignant neoplasm of breast (principal); Z85.3 Personal history of malignant neoplasm of breast
CPT/HCPCS: 77063; 77067

== ENCOUNTER → 2021-09-14 17:09 | Outpatient (ROUT) | payer OTHER, MEDICAID, SELFPAY ==
[2021-09-14 17:57] LABS: COVID19 - ADMIT (NP swab/PCR) Negative (Negative)
== END ==
PROVIDERS: PCP Internal Medicine; Visit Provider Internal Medicine
DX: Z20.822 Contact with and (suspected) exposure to COVID-19 (principal); R05.1 Acute cough; R51.9 Headache, unspecified
CPT/HCPCS: U0003

== ENCOUNTER → 2021-11-25 08:52 | Outpatient (CLI) | payer OTHER, MEDICAID, SELFPAY ==
[2021-11-25 15:15] LABS: Adenovirus Not Detected (Not Detect); B. parapertussis Not Detected (Not Detecte); Bordetella pertussis Not Detected (Not Detecte); Chlamydophila pneumoniae Not Detected (Not Detect); Coronavirus 229E Not Detected (Not Detect); Coronavirus HKU1 Not Detected (Not Detect); Coronavirus NL 63 Not Detected (Not Detect); Coronavirus OC43 Not Detected (Not Detect); Human Metapneumovirus Not Detected (Not Detect); Human Rhinovirus/Enterovirus Not Detected (Not Detect); Influenza A Not Detected (Not Detect); Influenza B Not Detected (Not Detect); Mycoplasma pneumoniae Not Detected (Not Detect); Parainfluenza Virus 1 Not Detected (Not Detect); Parainfluenza Virus 2 Not Detected (Not Detect); Parainfluenza Virus 3 Not Detected (Not Detect); Parainfluenza Virus 4 Not Detected (Not Detect); Respiratory Syncytial Virus Not Detected (Not Detect); SARS- CoV-2 Not Detected (Not Detecte)
== END ==
PROVIDERS: PCP Internal Medicine; Visit Provider Nurse Practitioner Critical Care Medicine
DX: J38.3 Other diseases of vocal cords (principal); R05.9 Cough, unspecified
CPT/HCPCS: 87633

== ENCOUNTER → 2021-11-25 09:15 | Outpatient (CLI) | payer OTHER, MEDICAID, SELFPAY ==
--- NOTE | 2021-11-25 09:17 | DI.RAD.S_ITS ---
PROCEDURE: XR CHEST 2V INDICATIONS: cough > 1 week, hx breast ca TECHNIQUE: 2 views of the chest were acquired. COMPARISON: [facility], CR, XR CHEST 2V, 09/19/2019, 15:29. FINDINGS: Surgical changes and devices: None. Lungs and pleura: Lungs are clear. No pleural effusions or pneumothorax. Mediastinum: Mediastinal contours are normal. Heart size is normal. Bones and chest wall: No suspicious bony abnormalities. Soft tissues appear unremarkable. IMPRESSION: No acute cardiopulmonary pathology. Dictated by: Jorge Young M.D. on 11/25/2021 at 9:27 Approved by: Jorge Young M.D. on 11/25/2021 at 9:27
== END ==
PROVIDERS: PCP Internal Medicine; Referring Provider Nurse Practitioner Critical Care Medicine; Visit Provider Nurse Practitioner Critical Care Medicine
DX: R05.9 Cough, unspecified (principal); J38.3 Other diseases of vocal cords; Z85.3 Personal history of malignant neoplasm of breast
CPT/HCPCS: 71046; 87633

== ENCOUNTER → 2022-01-31 11:36 | Outpatient (CLI) | payer OTHER, MEDICAID, SELFPAY ==
--- NOTE | 2022-01-31 11:40 | DI.RAD.S_ITS ---
PROCEDURE: XR SHOULDER LT MIN 2V INDICATIONS: Left shoulder pain, hx of lt breast cancer TECHNIQUE: 3 views of the shoulder were acquired. COMPARISON: None. FINDINGS: Bones: No fractures or dislocations. No suspicious bony lesions. Visualized ribs appear intact. Minimal degenerative changes of the acromioclavicular joint. Soft tissues: No suspicious soft tissue calcifications. Surgical clips over the left chest wall. IMPRESSION: No acute abnormality of the left shoulder. Dictated by: Eran Hernandez M.D. on 01/31/2022 at 14:00 Approved by: Eran Hernandez M.D. on 01/31/2022 at 14:01
== END ==
PROVIDERS: PCP Internal Medicine; Referring Provider Internal Medicine; Visit Provider Internal Medicine
DX: M25.512 Pain in left shoulder (principal); Z85.3 Personal history of malignant neoplasm of breast
CPT/HCPCS: 73030

== ENCOUNTER → 2022-04-12 07:02 | Outpatient (CLI) | payer OTHER, MEDICAID, SELFPAY ==
[2022-04-12 07:45] LABS: Add Manual Diff / Slide Review NO; Basophils Absolute Auto 0 /uL (0-100); Basophils Percent Auto 1.2 % (0-2); Eosinophils Absolute Auto 100 /uL (0-450); Eosinophils Percent Auto 1.7 % (2-4); Hemoglobin 13.3 g/dL (12.0-16.0); Lymphocytes Absolute Auto 1200 /uL (1100-4500); Lymphocytes Percent Auto 30.6 % (25-40); Mean Corpuscular HGB Conc 34.2 % (30-36); Mean Corpuscular Hemoglobin 29.3 PG (26-34); Mean Corpuscular Volume 85.9 fL (80-100); Monocytes Absolute Auto 300 /uL (0-900); Monocytes Percent Auto 7.5 % (3-14); Neutrophils Absolute Auto 2200 /uL (1500-7000); Platelet Count 288 X10^3/uL (150-400); Red Blood Cell Count 4.54 X10^6/uL (4.0-5.2); Red Cell Distribution Width 14.6 % (11.6-14.8); White Blood Cell Count 3.8 X10^3/uL (4.5-11.0)
[2022-04-12 09:42] LABS: Alanine Aminotransferase 21 IU/L (<35); Albumin 3.9 g/dL (3.5-5.0); Albumin Globulin Ratio 1.4 (1.0-2.8); Alkaline Phosphatase 115 U/L (38-126); Aspartate Aminotransferase 24 IU/L (14-36); BUN Creatinine Ratio 23.2 (6-22); Bilirubin Total 0.5 mg/dL (0.2-1.3); Blood Urea Nitrogen 16 mg/dL (7-17); Calcium 8.8 mg/dL (8.4-10.2); Carbon Dioxide 22 mmol/L (22-32); Chloride 105 mmol/L (98-107); Estimated Glomerular Filt Rate > 60 mL/min (>60); Globulin 2.7 g/dL (1.7-4.1); Glucose 93 mg/dL (80-110); HEMOLYSIS < 15 (0-50); Potassium 4.1 mmol/L (3.4-5.1); Sodium 138 mmol/L (137-145); Total Protein 6.6 g/dL (6.3-8.2)
[2022-04-13 10:32] LABS: Cancer Antigen 27.29 51.5 U/mL (0.0-38.6)
== END ==
PROVIDERS: PCP Internal Medicine; Referring Provider Internal Medicine Hematology & Oncology; Visit Provider Internal Medicine Hematology & Oncology
DX: C50.912 Malignant neoplasm of unspecified site of left female breast (principal)
CPT/HCPCS: 36415; 80053; 85025; 86300

== ENCOUNTER → 2022-06-26 07:38 | Outpatient (CLI) | payer OTHER, MEDICAID, SELFPAY ==
[2022-06-26 07:58] LABS: Add Manual Diff / Slide Review NO; Basophils Absolute Auto 0 /uL (0-100); Basophils Percent Auto 0.5 % (0-2); Eosinophils Absolute Auto 100 /uL (0-450); Eosinophils Percent Auto 2.5 % (2-4); Hematocrit 42.9 % (36-46); Hemoglobin 14.7 g/dL (12.0-16.0); Lymphocytes Absolute Auto 1300 /uL (1100-4500); Lymphocytes Percent Auto 26.1 % (25-40); Mean Corpuscular HGB Conc 34.3 % (30-36); Mean Corpuscular Hemoglobin 30.3 PG (26-34); Mean Corpuscular Volume 88.3 fL (80-100); Monocytes Absolute Auto 300 /uL (0-900); Monocytes Percent Auto 6.2 % (3-14); Neutrophils Absolute Auto 3200 /uL (1500-7000); Neutrophils Percent Auto 64.7 % (50-75); Platelet Count 285 X10^3/uL (150-400); Red Blood Cell Count 4.86 X10^6/uL (4.0-5.2); Red Cell Distribution Width 15.5 % (11.6-14.8); White Blood Cell Count 4.9 X10^3/uL (4.5-11.0)
[2022-06-26 08:18] LABS: Hemoglobin A1C% w Est Avg Glu 5.4 % (4.0-6.0)
[2022-06-26 08:27] LABS: Alanine Aminotransferase 19 IU/L (<35); Albumin 4.2 g/dL (3.5-5.0); Albumin Globulin Ratio 1.3 (1.0-2.8); Alkaline Phosphatase 122 U/L (38-126); Aspartate Aminotransferase 21 IU/L (14-36); BUN Creatinine Ratio 23.9 (6-22); Bilirubin Total 0.5 mg/dL (0.2-1.3); Blood Urea Nitrogen 17 mg/dL (7-17); Carbon Dioxide 27 mmol/L (22-32); Chloride 103 mmol/L (98-107); Cholesterol 197 mg/dL (140-199); Estimated Glomerular Filt Rate > 60 mL/min (>60); Globulin 3.2 g/dL (1.7-4.1); Glucose 106 mg/dL (80-110); HDL Cholesterol 48 mg/dL (40-60); HEMOLYSIS < 15 (0-50); LDL Cholesterol Calculated 123 mg/dL (<100); Potassium 4.1 mmol/L (3.4-5.1); Sodium 140 mmol/L (137-145); Total Protein 7.4 g/dL (6.3-8.2); Triglycerides 131 mg/dL (35-150)
[2022-06-26 09:53] LABS: Thyroid Stimulating Hormone 4.94 uIU/mL (0.47-4.68)
== END ==
PROVIDERS: PCP Internal Medicine; Referring Provider Internal Medicine; Visit Provider Internal Medicine
DX: R73.9 Hyperglycemia, unspecified (principal); E78.5 Hyperlipidemia, unspecified; E03.9 Hypothyroidism, unspecified
CPT/HCPCS: 36415; 80053; 80061; 83036; 84443; 85025

== ENCOUNTER → 2022-07-31 10:25 | Outpatient (CLI) | payer OTHER, MEDICAID, SELFPAY ==
--- NOTE | 2022-07-31 10:26 | DI.MG.S_ITS ---
UNILATERAL RIGHT DIGITAL SCREENING MAMMOGRAM 3D/2D WITH CAD: 07/31/2022 CLINICAL: Routine. Breast cancer. Comparison is made to exams dated: 07/30/2021 mammogram - [facility], [facility] 12/[facility]/2018 mammogram, and 05/08/2018 mammogram - [facility]. The right breast is heterogeneously dense, which may obscure small masses (category c / 51-75% glandular tissue). Current study was also evaluated with a Computer Aided Detection (CAD) system. There are benign calcifications in the right breast. No significant masses, calcifications, or other findings are seen in the breast. There has been no significant interval change. IMPRESSION: BENIGN There is no mammographic evidence of malignancy. A 1 year screening mammogram is recommended. This exam was interpreted at Station ID: [id number]. NOTE: For mammograms, a report in lay terms will be sent to the patient. Approximately 15% of breast malignancies will not be visualized mammographically. In the management of a palpable breast mass, a negative mammogram must not discourage biopsy of a clinically suspicious lesion. Electronically Signed By: Nick omalley/roxann:07/31/2022 16:35:31 letter sent: Normal Exam ACR BI-RADS Category 2: Benign Finding(s) 3342F
== END ==
PROVIDERS: PCP Internal Medicine; Referring Provider Internal Medicine; Visit Provider Internal Medicine
DX: Z78.0 Asymptomatic menopausal state (principal); Z12.31 Encounter for screening mammogram for malignant neoplasm of breast; Z13.820 Encounter for screening for osteoporosis; M85.852 Other specified disorders of bone density and structure, left thigh; Z85.3 Personal history of malignant neoplasm of breast; Z90.710 Acquired absence of both cervix and uterus
CPT/HCPCS: 77063; 77067; 77080

== ENCOUNTER → 2022-08-25 07:32 | Outpatient (CLI) | payer OTHER, MEDICAID, SELFPAY ==
[2022-08-25 08:30] LABS: Add Manual Diff / Slide Review NO; Basophils Absolute Auto 0 /uL (0-100); Eosinophils Absolute Auto 100 /uL (0-450); Eosinophils Percent Auto 1.9 % (2-4); Hematocrit 42.2 % (36-46); Hemoglobin 14.6 g/dL (12.0-16.0); Lymphocytes Absolute Auto 1300 /uL (1100-4500); Lymphocytes Percent Auto 29.6 % (25-40); Mean Corpuscular HGB Conc 34.6 % (30-36); Mean Corpuscular Hemoglobin 31.2 PG (26-34); Mean Corpuscular Volume 90.2 fL (80-100); Monocytes Absolute Auto 300 /uL (0-900); Monocytes Percent Auto 7.4 % (3-14); Neutrophils Absolute Auto 2700 /uL (1500-7000); Neutrophils Percent Auto 60.1 % (50-75); Platelet Count 295 X10^3/uL (150-400); Red Blood Cell Count 4.68 X10^6/uL (4.0-5.2); Red Cell Distribution Width 14.1 % (11.6-14.8); White Blood Cell Count 4.5 X10^3/uL (4.5-11.0)
[2022-08-25 08:40] LABS: Alanine Aminotransferase 24 IU/L (<35); Albumin 4.1 g/dL (3.5-5.0); Albumin Globulin Ratio 1.6 (1.0-2.8); Alkaline Phosphatase 105 U/L (38-126); Aspartate Aminotransferase 21 IU/L (14-36); BUN Creatinine Ratio 20.6 (6-22); Bilirubin Total 0.5 mg/dL (0.2-1.3); Blood Urea Nitrogen 13 mg/dL (7-17); Carbon Dioxide 24 mmol/L (22-32); Chloride 102 mmol/L (98-107); Estimated Glomerular Filt Rate > 60 mL/min (>60); Globulin 2.6 g/dL (1.7-4.1); Glucose 102 mg/dL (80-110); Sodium 138 mmol/L (137-145); Total Protein 6.7 g/dL (6.3-8.2)
[2022-08-25 08:47] LABS: Calcium 9.2 mg/dL (8.4-10.2); HEMOLYSIS < 15 (0-50)
[2022-08-26 09:30] LABS: Cancer Antigen 27.29 44.4 U/mL (0.0-38.6)
== END ==
PROVIDERS: PCP Internal Medicine; Referring Provider Internal Medicine Hematology & Oncology; Visit Provider Internal Medicine Hematology & Oncology
DX: C50.912 Malignant neoplasm of unspecified site of left female breast (principal)
CPT/HCPCS: 36415; 80053; 85025; 86300

== ENCOUNTER → 2022-12-21 07:14 | Outpatient (CLI) | payer OTHER, MEDICAID, SELFPAY ==
[2022-12-21 08:07] LABS: Add Manual Diff / Slide Review NO; Basophils Absolute Auto 100 /uL (0-100); Basophils Percent Auto 2.2 % (0-2); Eosinophils Absolute Auto 100 /uL (0-450); Eosinophils Percent Auto 2.7 % (2-4); Lymphocytes Absolute Auto 1300 /uL (1100-4500); Lymphocytes Percent Auto 33.1 % (25-40); Mean Corpuscular HGB Conc 35.1 % (30-36); Mean Corpuscular Hemoglobin 32.1 PG (26-34); Mean Corpuscular Volume 91.7 fL (80-100); Monocytes Absolute Auto 300 /uL (0-900); Monocytes Percent Auto 6.2 % (3-14); Neutrophils Absolute Auto 2300 /uL (1500-7000); Neutrophils Percent Auto 55.8 % (50-75); Platelet Count 263 X10^3/uL (150-400); Red Blood Cell Count 4.36 X10^6/uL (4.0-5.2); Red Cell Distribution Width 13.2 % (11.6-14.8); White Blood Cell Count 4.1 X10^3/uL (4.5-11.0)
[2022-12-21 08:15] LABS: Alanine Aminotransferase 26 IU/L (<35); Albumin 3.7 g/dL (3.5-5.0); Albumin Globulin Ratio 1.4 (1.0-2.8); Alkaline Phosphatase 91 U/L (38-126); Aspartate Aminotransferase 24 IU/L (14-36); BUN Creatinine Ratio 30.1 (6-22); Bilirubin Total 0.5 mg/dL (0.2-1.3); Blood Urea Nitrogen 22 mg/dL (7-17); Calcium 9.5 mg/dL (8.4-10.2); Carbon Dioxide 24 mmol/L (22-32); Chloride 106 mmol/L (98-107); Estimated Glomerular Filt Rate > 60 mL/min (>60); Globulin 2.7 g/dL (1.7-4.1); Glucose 109 mg/dL (80-110); HEMOLYSIS < 15 (0-50); Potassium 4.1 mmol/L (3.4-5.1); Sodium 138 mmol/L (137-145); Total Protein 6.4 g/dL (6.3-8.2)
[2022-12-22 11:34] LABS: Cancer Antigen 27.29 52.6 U/mL (0.0-38.6)
== END ==
PROVIDERS: PCP Internal Medicine; Referring Provider Nurse Practitioner; Visit Provider Nurse Practitioner
DX: Z08 Encounter for follow-up examination after completed treatment for malignant neoplasm (principal); Z85.3 Personal history of malignant neoplasm of breast
CPT/HCPCS: 36415; 80053; 85025; 86300

== ENCOUNTER → 2023-01-10 09:23 | Outpatient (CLI) | payer OTHER, MEDICAID, SELFPAY ==
--- NOTE | 2023-01-10 | DI.CT.S_ITS ---
PROCEDURE: CT CHEST ABD PEL W CON INDICATIONS: Malignant neoplasm of left female breast TECHNIQUE: After the administration of oral and intravenous contrast, axial sections acquired from the supraclavicular neck to the pubic symphysis. Coronal and sagittal reformats were performed. For radiation dose reduction, the following was used: automated exposure control, adjustment of mA and/or kV according to patient size. COMPARISON: [facility], CT, CT CHEST ABD PEL W CON, 01/07/2021, 13:29. 01/17/2022. FINDINGS: Image quality: Excellent. CHEST: Lower Neck: No enlarged lymph nodes. Thyroid: Similar heterogeneous thyroid. Axillae: No enlarged lymph nodes. Chest Wall: Prior left mastectomy. Lungs and Airways: No consolidation or suspicious nodules. Mild anterior left lung reticulation, presumably post radiation change. Stable 5 millimeter juxtapleural nodule, left lower lobe (series 4, images 277); location and appearance favors a benign intrapulmonary lymph node. Pleura: No pneumothorax or pleural effusions. Heart: Heart size is normal. No pericardial effusion. Thoracic Vessels: The aorta and pulmonary arteries demonstrate normal size. Mediastinum and Apurva: No enlarged lymph nodes. Esophagus: No wall thickening. Large hiatal hernia. ABDOMEN: Liver: Hepatic steatosis. Gallbladder: Diffuse thickening of the gallbladder wall, without distention or pericholecystic edema, a nonspecific appearance. Biliary ducts: Unremarkable. Pancreas: Unremarkable. Spleen: Unremarkable. Adrenal Glands: Unremarkable. Kidneys and Ureters: Unremarkable. Stomach and Bowel: Stomach, small bowel loops, and colon are unremarkable. Peritoneum: No abnormal intraperitoneal fluid. No free air. Ventral Wall: No hernia. Abdominal Nodes: No retroperitoneal or mesenteric adenopathy by size criteria. Vessels: Aorta and inferior vena cava are normal in size. PELVIS: Pelvic Organs: Slight interval growth of the right adnexal cystic mass measures 7.7 centimeters. There is mild wall irregularity along the anterior margin, which appears new from prior (series 2, image 177). Bladder: Unremarkable. Pelvic Nodes: No enlarged lymph nodes. Miscellaneous: No inguinal hernias are seen. Bones: Unremarkable. IMPRESSION: 1. Prior mastectomy without evidence of local recurrence or metastatic disease. 2. Slight interval growth of the right adnexal cystic mass measures 7.7 centimeters. There is mild wall irregularity along the anterior margin, which appears new from prior (series 2, image 177). Consider pelvic ultrasound to exclude new papillary projections. Dictated by: Cristóbal Sims M.D. on 01/10/2023 at 12:25 Approved by: Cristóbal Sims M.D. on 01/10/2023 at 12:37
== END ==
PROVIDERS: PCP Internal Medicine; Referring Provider Internal Medicine; Visit Provider Internal Medicine
DX: C79.51 Secondary malignant neoplasm of bone; C50.912 Malignant neoplasm of unspecified site of left female breast; R06.09 Other forms of dyspnea; R07.9 Chest pain, unspecified; K44.9 Diaphragmatic hernia without obstruction or gangrene; R19.00 Intra-abdominal and pelvic swelling, mass and lump, unspecified site; Z90.12 Acquired absence of left breast and nipple; K76.0 Fatty (change of) liver, not elsewhere classified
CPT/HCPCS: 71260; 74177; Q9967

== ENCOUNTER → 2023-08-10 12:46 | Outpatient (CLI) | payer MEDICARE, MEDICAID, SELFPAY ==
--- NOTE | 2023-08-10 | DI.MG.S_ITS ---
UNILATERAL RIGHT DIGITAL SCREENING MAMMOGRAM 3D/2D WITH CAD: 08/10/2023 CLINICAL: Routine screening. Personal history of left breast cancer. Comparison is made to exams dated: 07/31/2022 mammogram, 07/30/2021 mammogram, and 12/09/2018 mammogram - [facility]. The right breast is heterogeneously dense, which may obscure small masses (category c / 51-75% glandular tissue). Current study was also evaluated with a Computer Aided Detection (CAD) system. There are benign calcifications in the right breast. No significant masses, calcifications, or other findings are seen in the breast. There has been no significant interval change. IMPRESSION: BENIGN There is no mammographic evidence of malignancy. A 1 year screening mammogram is recommended. This exam was interpreted at Station ID: [id number]. NOTE: For mammograms, a report in lay terms will be sent to the patient. Approximately 15% of breast malignancies will not be visualized mammographically. In the management of a palpable breast mass, a negative mammogram must not discourage biopsy of a clinically suspicious lesion. Electronically Signed By: Nick [email or web address]/[email or web address]:08/10/2023 17:52:32 letter sent: Normal Exam ACR BI-RADS Category 2: Benign Finding(s) 3342F
== END ==
PROVIDERS: PCP Student in an Organized Health Care Education/Training Program; Referring Provider Student in an Organized Health Care Education/Training Program; Visit Provider Student in an Organized Health Care Education/Training Program
DX: Z12.31 Encounter for screening mammogram for malignant neoplasm of breast (principal); Z85.3 Personal history of malignant neoplasm of breast
CPT/HCPCS: 77063; 77067

== ENCOUNTER → 2023-10-18 14:41 | Outpatient (CLI) | payer MEDICARE, MEDICAID, SELFPAY | PROVIDERS: PCP Family Medicine; Referring Provider Family Medicine; Visit Provider Family Medicine | DX: R06.02 Shortness of breath (principal); Z92.3 Personal history of irradiation | CPT/HCPCS: 94060; 94729 ==

== ENCOUNTER → 2023-10-23 07:41 | Outpatient (CLI) | payer MEDICARE, MEDICAID, SELFPAY ==
--- NOTE | 2023-10-23 07:43 | DI.US.S_ITS ---
PROCEDURE: US ABDOMEN LIMITED INDICATIONS: COUGHLIN TECHNIQUE: Real-time focused scanning was performed of the abdomen, with image documentation. COMPARISON: [facility], CT, CT CHEST ABD PEL W CON, 01/10/2023, 10:53. FINDINGS: There is diffuse increased echogenicity of the liver consistent with diffuse hepatic steatosis. No focal liver mass. The gallbladder is filled with numerous stones. There is associated gallbladder wall thickening. No dilated ducts. Common hepatic duct measures 4.9 mm. Visualized portions the pancreas are unremarkable. IMPRESSION: 1. Diffuse hepatic steatosis. No identification of a liver mass. 2. Gallbladder is packed with stones. As the prior study head diffuse wall thickening, consider possible chronic cholecystitis. 3. No biliary ductal dilatation. Dictated by: Yunior Smith M.D. on 10/23/2023 at 14:10 Approved by: Yunior Smith M.D. on 10/23/2023 at 14:13
--- NOTE | 2023-10-23 07:43 | DI.US.S_ITS ---
PROCEDURE: US THYROID INDICATIONS: FOLLOW UP THYROID NODULES. HYPO/HYPERTHYROIDISM TECHNIQUE: Real-time scanning was performed of the thyroid gland, with image documentation. COMPARISON: [facility], CT, CT CHEST ABD PEL W CON, 01/10/2023, 10:53. [facility], US, US FINE NEEDLE ASPIRATION, 05/08/2018, 10:06. [facility], US, US THYROID, 04/22/2018, 14:14. FINDINGS: Right: Thyroid lobe measures 5.8 x 1.8 x 2 point cm, and is heterogeneous in echotexture. Left: Thyroid lobe measures 6.0 x 1.6 x 2.6 cm, and is heterogeneous in echotexture. Isthmus: 0.25 cm thick. Nodule number: 1 Location: Right mid anterior Size: 0.8 x 0.9 x 0.7 cm; previously 1.0 x 1.0 x 0.9 cm. Composition: Solid Echogenicity: Isoechoic Shape: wider than tall. Margins: Smooth Echogenic foci: None Total points: 3 ACR TI-RADS category: 3 Nodule number: 2 Location: Right mid posterior Size: 1.6 x 1.1 x 1.2 cm; previously 1.9 x 1.1 x 1.1 cm. Composition: Solid Echogenicity: Isoechoic Shape: wider than tall. Margins: Smooth Echogenic foci: None Total points: 3 ACR TI-RADS category: 3 Nodule number: 3 Location: Left mid Size: 3.2 x 1.6 x 1.7 cm; previously 3.3 x 1.7 x 2.0 cm. Composition: Solid Echogenicity: Hypoechoic Shape: wider than tall. Margins: Smooth Echogenic foci: None Total points: 4 ACR TI-RADS category: 4 IMPRESSION: 1. Multiple thyroid nodules. 2. Nodule 3 is moderately suspicious. The nodule was previously biopsied on 05/08/2018. Please correlate with pathological diagnosis and recommendation. The nodule appears not significant changed. 3. Nodule 1 and 2 are mildly suspicious and appear slightly decreased in size. Please see enclosed follow-up recommendation. ACR TI-RADS definitions and recommendations: TI-RADS 1 (benign): 0 points. FNA not needed. TI-RADS 2 (not suspicious): 2 points. FNA not needed. TI-RADS 3 (mildly suspicious): 3 points. * FNA if 2.5 cm or larger, follow up if 1.5 cm or larger (at 1, 3, and 5 years). TI-RADS 4 (moderately suspicious): 4-6 points. * FNA if 1.5 cm or larger, follow up if 1 cm or larger (at 1, 2, 3, and 5 years). TI-RADS 5 (highly suspicious): 7 points or more. * FNA if 1 cm or larger, follow up if 0.5 cm or larger (every year for 5 years). Dictated by: Brice Cruz M.D. on 10/23/2023 at 16:16 Approved by: Brice Cruz M.D. on 10/23/2023 at 16:27
== END ==
LOC: US 07:41
PROVIDERS: PCP Family Medicine; Referring Provider Family Medicine; Visit Provider Family Medicine
DX: K76.0 Fatty (change of) liver, not elsewhere classified (principal); K80.20 Calculus of gallbladder without cholecystitis without obstruction; E04.2 Nontoxic multinodular goiter; Z86.39 Personal history of other endocrine, nutritional and metabolic disease; Z92.3 Personal history of irradiation
CPT/HCPCS: 76536; 76705

== ENCOUNTER → 2023-10-25 06:57 | Outpatient (CLI) | payer MEDICARE, MEDICAID, SELFPAY ==
[2023-10-25 08:03] LABS: Add Manual Diff / Slide Review NO; Basophils Absolute Auto 100 /uL (0-100); Basophils Percent Auto 1.2 % (0-2); Eosinophils Absolute Auto 100 /uL (0-450); Eosinophils Percent Auto 2.3 % (2-4); Hematocrit 41.4 % (36-46); Hemoglobin 14.4 g/dL (12.0-16.0); Lymphocytes Absolute Auto 1200 /uL (1100-4500); Lymphocytes Percent Auto 27.4 % (25-40); Mean Corpuscular HGB Conc 34.8 % (30-36); Mean Corpuscular Hemoglobin 32.5 PG (26-34); Mean Corpuscular Volume 93.5 fL (80-100); Monocytes Absolute Auto 300 /uL (0-900); Monocytes Percent Auto 7.7 % (3-14); Neutrophils Absolute Auto 2700 /uL (1500-7000); Neutrophils Percent Auto 61.4 % (50-75); Platelet Count 270 X10^3/uL (150-400); Red Blood Cell Count 4.43 X10^6/uL (4.0-5.2); Red Cell Distribution Width 13.3 % (11.6-14.8); White Blood Cell Count 4.4 X10^3/uL (4.5-11.0)
[2023-10-25 08:27] LABS: Alanine Aminotransferase 22 IU/L (<35); Albumin Globulin Ratio 1.5 (1.0-2.8); Alkaline Phosphatase 96 U/L (38-126); Aspartate Aminotransferase 23 IU/L (14-36); BUN Creatinine Ratio 19.5 (6-22); Bilirubin Total 0.8 mg/dL (0.2-1.3); Blood Urea Nitrogen 16 mg/dL (7-17); Calcium 9.2 mg/dL (8.4-10.2); Carbon Dioxide 31 mmol/L (22-32); Chloride 104 mmol/L (98-107); Cholesterol 201 mg/dL (140-199); Estimated Glomerular Filt Rate > 60 mL/min (>60); Globulin 2.6 g/dL (1.7-4.1); Glucose 97 mg/dL (80-110); HDL Cholesterol 49 mg/dL (40-60); HEMOLYSIS < 15 (0-50); LDL Cholesterol Calculated 119 mg/dL (<100); Magnesium 2.3 mg/dL (1.6-2.3); Potassium 4.2 mmol/L (3.4-5.1); Sodium 139 mmol/L (137-145); Total Protein 6.6 g/dL (6.3-8.2); Triglycerides 167 mg/dL (35-150)
[2023-10-25 08:56] LABS: TSH w/ Reflex to FT4 5.81 uIU/mL (0.47-4.68)
[2023-10-25 09:30] LABS: Folate 19.3 ng/mL (2.76-20.0); Vitamin B12 Reflex MMA if <400 454 pg/mL (239-931)
[2023-10-25 09:48] LABS: Free T4, Direct Thyroxine 0.83 ng/dL (0.78-2.19)
== END ==
LOC: LAB 06:59
PROVIDERS: PCP Family Medicine; Referring Provider Family Medicine; Visit Provider Family Medicine
DX: G62.9 Polyneuropathy, unspecified (principal); R79.89 Other specified abnormal findings of blood chemistry; E78.5 Hyperlipidemia, unspecified; C50.919 Malignant neoplasm of unspecified site of unspecified female breast; Z92.3 Personal history of irradiation
CPT/HCPCS: 36415; 80053; 80061; 82607; 82746; 83735; 84439; 84443; 85025

== ENCOUNTER → 2023-10-30 13:00 | Outpatient (CLI) | payer MEDICARE, MEDICAID, SELFPAY ==
--- NOTE | 2023-10-30 13:02 | DI.US.S_ITS ---
PROCEDURE: US PELVIC COMPLETE INDICATIONS: R adnexal mass noted on prior CT (12/2022) TECHNIQUE: Real-time scanning was performed of the pelvic organs, with image documentation. Additional endovaginal scanning was necessary due to incomplete visualization of the adnexal and endometrial structures by transabdominal scanning. COMPARISON: [facility], CT, CT CHEST ABD PEL W CON, 01/10/2023, 10:53. FINDINGS: Uterus: Uterus is surgically absent. No abnormality is seen in vaginal cuff region. Ovaries: Bilateral ovaries are not visualized. Large anechoic structure is seen in right adnexa measures 7.5 x 5.1 x 6.2 cm and contained 2 internal solid appearing nodules measures 7 mm each. No internal vascularity is are seen. Other: No pathologic free abdominal or pelvic fluid. IMPRESSION: Predominantly cystic structure in right adnexa measures 7.5 x 5.1 x 6.2 cm in size and measured 7.7 cm in size on previous CT of chest, abdomen and pelvis study. 2 nonvascular solid appearing nodules along the wall of this structure. Finding is suggestive of cystic neoplasm of indeterminate nature. Continued sonographic surveillance is recommended. We strive to produce accurate, complete, and clear reports of imaging services. To assist us in improving patient care, this report was composed using standard report templates and voice recognition software. Therefore, it may contain abnormal punctuation, insertions and/or omissions. Occasional wrong-word or sound-alike substitutions may occur. Though we review the report and make efforts to correct it, we do recommend that the report be read carefully in proper context to recognize any text inaccuracies. Dictated by: oJrge Young M.D. on 10/30/2023 at 14:46 Approved by: Jorge Young M.D. on 10/30/2023 at 14:50
== END ==
PROVIDERS: PCP Family Medicine; Referring Provider Family Medicine; Visit Provider Family Medicine
DX: N83.8 Other noninflammatory disorders of ovary, fallopian tube and broad ligament (principal); Z90.710 Acquired absence of both cervix and uterus
CPT/HCPCS: 76830; 76856

== ENCOUNTER → 2023-11-04 09:19 | Outpatient (CLI) | payer MEDICARE, MEDICAID, SELFPAY ==
--- NOTE | 2023-11-04 09:21 | DI.MRI.S_ITS ---
PROCEDURE: MR PELVIS WO/W CON INDICATIONS: further eval mass seen on right ovary 10/30/23 TECHNIQUE: Coronal HASTE, sagittal breath-hold T2 FSE; axial T1 FSE with and without fat saturation through the pelvis. Optional long- and short-axis uterine nonbreath-hold T2 FSE through the uterus. Sagittal or axial dynamic VIBE during administration of contrast. Post-contrast axial or coronal VIBE/2-D FLASH with fat saturation from the iliac crests to the symphysis. Optional diffusion weighted imaging and ADC may be performed. COMPARISON: None. FINDINGS: Image quality: Excellent. Uterus: Uterus is normal in size. Endometrium is normal in thickness. Junctional zone is normal in thickness at 12 mm or less. Adnexa: There is a right ovarian cystic lesion measuring 7.5 x 5.6 x 6.1 cm. No enhancing papillary projections 3 mm papillary projection along the right side of the cystic lesion (series 4, image 7), which does not demonstrate enhancement. Urinary system: Bladder wall is normal in thickness. Distal ureters are non distended. Urethra appears normal in morphology. Nodes and vessels: No pelvic or inguinal adenopathy by size criteria. Iliac vessels are normal in size. Bowel and peritoneum: No pathologic free pelvic fluid. Inferior colon and small bowel loops are normal in caliber. Soft tissues: No inguinal hernias. No findings of pelvic floor incompetence in the absence of provocation. Bones: Marrow demonstrates normal overall signal. IMPRESSION: O-RADS 4 cystic lesion with a papillary projection, better seen on prior ultrasound. Recommend gynecologic referral, if not already obtained. Dictated by: Cristóbal Sims M.D. on 11/05/2023 at 8:36 Approved by: Cristóbal Sims M.D. on 11/05/2023 at 8:42
== END ==
LOC: MRI 09:20
PROVIDERS: PCP Family Medicine; Referring Provider Family Medicine; Visit Provider Family Medicine
DX: N83.8 Other noninflammatory disorders of ovary, fallopian tube and broad ligament (principal); N83.291 Other ovarian cyst, right side
CPT/HCPCS: 72197; A9579

== ENCOUNTER 2023-11-27 06:46 | Day surgery (SDC) | payer MEDICARE, MEDICAID, SELFPAY ==
[2023-11-23 13:46] VITALS: BMI 28.9
[2023-11-27] VITALS (8 sets, daily range): BP systolic 99–130; BP diastolic 57–78; PULSE 62–94; RESP 10–18; TEMP 36.2–36.5; O2SAT 94–97; BMI 27.9
--- NOTE | 2023-11-27 | PATH_ITS ---
[facility] Accession Number: [id number] No. of containers..01 Tissue . 01 Material submitted: . gallbladder - GALLBLADDER . 01 Diagnosis: GALLBLADDER, CHOLECYSTECTOMY: Cholelithiasis with mild chronic cholecystitis. One benign cystic duct lymph node. No evidence of neoplasm. MRV 12/03/2023 1407 Local . 01 Electronically signed: . Guido Parker MD, PhD, Pathologist NPI- [id number] . 01 Gross description: . The specimen is received in formalin, labeled with the patient's name, , and gallbladder, and consists of an intact gallbladder measuring 9.7 x 3.5 x 3.5 cm. The external surface is unremarkable. The cystic duct margin is inked blue, and a pericystic lymph node candidate is identified measuring up to 1.5 cm in greatest dimension. The lumen contains multiple orange faceted calculi measuring up to 2.4 cm in greatest dimension grossly obstructing the cystic duct and admixed with dark green mucoid bile. The mucosa is green and ranges from velvety to trabecular with no yellow discoloration, polyps, or lesions identified. The kraft average 0.4 cm thick. [employer] Negative sections to include the cystic duct margin, full thickness sections, and one-half of the bisected lymph node candidate are submitted in cassette A1. ([id number]) /MRV 11/28/2023 1703 Local . 01 Pathologist provided ICD-10: K80.60, K81.1 . 01 CPT . 059716 Specimen Comment: A courtesy copy of this report has been sent to [phone] Performed at: 01 [facility] [address] [place] [address], [place], [place] [id number] MD Josue Jha MD Phone: [phone]
[2023-11-27] MEDS: ACETAMINOPHEN 325 MG TABLET 975 MG PO (07:20)
[2023-11-27] MEDS: LACTATED RINGERS 1,000 ML 42 ML IV (07:21)
--- NOTE | 2023-11-27 07:40 | SUR.OPER ---
Supine on padded OR bed, head on pillow, safety belt at thigh, left arm padded and tucked at side. Right arm secured on padded arm board <90 degrees abduction. Legs uncrossed. Padded footboard in place. Tape over blanket to secure lower legs.
--- NOTE | 2023-11-27 07:46 | PM.HP.1 ---
History of Present Illness History of Present Illness Date Patient Seen: 11/27/23 Time Patient Seen: 07:46 Chief complaint: Lap Sherlyn Narrative: Darlin is a 73-year-old woman who has gallstones. She had an ultrasound that showed gallstones. She is here for a laparoscopic cholecystectomy. Please see the office note for more details. [facility] Medical History Wears glasses (~2022) Chronic cough Neuropathy Allergies Restless leg syndrome Migraines Headache Sports injuries Shoulder pain Fractures Foot pain Mumps Measles Chicken pox Recurrent sinusitis Hearing loss (~2014) Painful menstrual periods Irregular menstrual cycle Heavy menstrual period Endometriosis (~1969) Hiatal hernia Irritable bowel syndrome GERD (gastroesophageal reflux disease) (~1999) Colitis Hx of thyroid nodule (~2018) Hx of radiation therapy Peripheral neuropathy Plantar wart Breast cancer (~1998) Surgical History Anesthesia History of partial hysterectomy (~1989) H/O lumpectomy (~1998) H/O mastectomy (~2012) Family History Father Congestive heart failure Hypertension Hyperlipidemia Mother Dementia Colon cancer Hyperlipidemia Hypertension Sister Cancer Hyperlipidemia Hypertension Grandfather Suicide Grandmother Congestive heart failure Hyperlipidemia Hypertension Grandfather Congestive heart failure Grandmother Congestive heart failure Social History household members: significant other Smoking Status: Never smoker alcohol intake: never substance use type: does not use Meds Home Medications and Allergies Home Medications Medication Instructions Recorded Confirmed Type atorvastatin 20 mg tablet 20 mg PO DAILY 10/11/23 11/27/23 History hydrochlorothiazide 25 mg tablet 25 mg PO DAILY 10/11/23 11/27/23 History turmeric 400 mg capsule 200 mg PO DAILY 11/27/23 11/27/23 History Allergies Allergy/AdvReac Type Severity Reaction Status Date / Time No Known Drug Allergies Allergy Verified 11/27/23 07:06 Exam Vital Signs (past 8 hours): - 11/27/23 07:09 Temperature 97.2 F L Pulse Rate 78 Respiratory Rate 18 Blood Pressure 130/78 Pulse Oximetry 94 Oxygen Delivery Method Room Air Oxygen Flow Rate 0 Oxygen Delivery Method Room Air Oxygen Flow Rate 0 Const General: No acute distress Resp Effort & Inspection: normal respiratory effort Assessment & Plan Assessment and plan (1) Cholelithiasis: Qualifiers: Cholelithiasis location: gallbladder Cholecystitis presence: without cholecystitis Biliary obstruction: without biliary obstruction Qualified Code(s): K80.20 - Calculus of gallbladder without cholecystitis without obstruction Status: Acute Plan We reviewed the risks and benefits of laparoscopic cholecystectomy for gallstones and she would like to proceed.
[2023-11-27] MEDS: CEFAZOLIN 2 GM/100 ML PREMIX 100 ML IV (08:06)
[2023-11-27] MEDS: BUPIVACAINE 0.5% (PF) 30 ML, EPINEPHrine 0.15 MG INJ (08:26)
--- NOTE | 2023-11-27 08:47 | SUR.OPER ---
Supine on padded OR bed, head on pillow, safety belt at thigh. Bilateral arms secured on padded arm board <90 degrees abduction. Legs uncrossed. Padded footboard in place. Tape over blanket to secure lower legs.
--- NOTE | 2023-11-27 09:16 | PM.OP.1 ---
Operative Date/Time/Diagnoses Date of procedure: 11/27/23 Time of procedure: 09:16 Pre-op diagnosis: Gallstones Post-op diagnosis: same Procedure & Clinicians Procedure: Laparoscopic cholecystectomy Same procedure as scheduled: Yes Surgeon: Bowen Kowalski Anesthesia Type: General Operative Notes Procedure in detail: The patient was given preoperative antibiotics. The patient was brought to the operating room and placed on the table in the supine position. General endotracheal anesthesia was induced. The abdomen was prepped and draped. A time-out was performed. We made a 1 cm infraumbilical incision. We dissected down to the base of the umbilical stalk using cautery. We grasped the umbilical stalk with a Joya clamp to elevate the abdominal wall. We scored the fascia in the midline with cautery. We pierced the peritoneum with a Peon clamp. The Nazario port was placed and the abdomen was insufflated to 15 mmHg. A 5 mm 30 degree laparoscopic was inserted. There was no evidence of any injury from the entry. Next, we placed 5 mm ports in the subxiphoid position and right upper quadrant at the midclavicular line and anterior axillary line. The patient was then positioned in reverse Trendelenburg and the table was tilted to the left. The gallbladder was grasped at the dome and retracted cephalad. We then dissected the cystic structures with a combination of hook cautery and blunt dissection. We obtained a critical view. We placed clips on the cystic duct and artery and divided the cystic duct and artery sharply between the clips. The gallbladder was then dissected off the liver and placed in a specimen retrieval bag. We irrigated the right upper quadrant and all the aspirate returned clear. We would extend the umbilical fascial incision with curved Vargas scissors to about 1.5 cm to extract the specimen due to the volume of stones. We then removed the 5 mm ports under direct vision we removed the Nazario port. We then injected some local into the fascia and closed the fascia with 2 interrupted 0 Vicryl sutures. The skin incisions were closed with 4-0 Monocryl and Steri-Strips were applied. Band-Aids were applied over the Steri-Strips. EBL: 30 mL Specimen: Gallbladder and contents Post-operative Condition: stable Disposition: PACU
[2023-11-27] MEDS: OXYCODONE IR 5 MG TABLET PO (09:57)
== END 2023-11-27 10:45 | disposition home or self-care (01) ==
PROVIDERS: PCP Family Medicine; Referring Provider Surgery; Visit Provider Surgery
PROC: 0FT44ZZ Resection of Gallbladder, Percutaneous Endoscopic Approach (ICD-10-PCS; CPT 47562; principal; 2023-11-27 07:45)
DX: K80.10 Calculus of gallbladder with chronic cholecystitis without obstruction (principal)
CPT/HCPCS: 47562; 82962; J0171; J0690; J1885; J2405; J2704; J3010; J3490

== ENCOUNTER → 2024-02-06 07:30 | Outpatient (CLI) | payer MEDICARE, MEDICAID, SELFPAY ==
[2024-02-06 08:29] LABS: Add Manual Diff / Slide Review NO; Basophils Absolute Auto 0 /uL (0-100); Basophils Percent Auto 1.2 % (0-2); Eosinophils Absolute Auto 100 /uL (0-450); Eosinophils Percent Auto 2.9 % (2-4); Hematocrit 43.5 % (36-46); Hemoglobin 14.8 g/dL (12.0-16.0); Lymphocytes Absolute Auto 1100 /uL (1100-4500); Lymphocytes Percent Auto 28.3 % (25-40); Mean Corpuscular Hemoglobin 31.8 PG (26-34); Mean Corpuscular Volume 93.6 fL (80-100); Monocytes Absolute Auto 300 /uL (0-900); Neutrophils Absolute Auto 2300 /uL (1500-7000); Neutrophils Percent Auto 60.6 % (50-75); Platelet Count 291 X10^3/uL (150-400); Red Blood Cell Count 4.65 X10^6/uL (4.0-5.2); Red Cell Distribution Width 13.6 % (11.6-14.8); White Blood Cell Count 3.8 X10^3/uL (4.5-11.0)
[2024-02-06 08:46] LABS: Alanine Aminotransferase 24 IU/L (<35); Albumin 4.1 g/dL (3.5-5.0); Albumin Globulin Ratio 1.7 (1.0-2.8); Alkaline Phosphatase 100 U/L (38-126); Aspartate Aminotransferase 23 IU/L (14-36); BUN Creatinine Ratio 22.2 (6-22); Bilirubin Total 0.7 mg/dL (0.2-1.3); Blood Urea Nitrogen 14 mg/dL (7-17); Calcium 8.7 mg/dL (8.4-10.2); Carbon Dioxide 24 mmol/L (22-32); Chloride 110 mmol/L (98-107); Estimated Glomerular Filt Rate > 60 mL/min (>60); Globulin 2.4 g/dL (1.7-4.1); Glucose 103 mg/dL (80-110); HEMOLYSIS < 15 (0-50); Sodium 140 mmol/L (137-145); Total Protein 6.5 g/dL (6.3-8.2)
[2024-02-08 13:29] LABS: Cancer Antigen 27.29 51.4 U/mL (0.0-38.6)
== END ==
PROVIDERS: PCP Family Medicine; Referring Provider Nurse Practitioner; Visit Provider Nurse Practitioner
DX: R97.8 Other abnormal tumor markers (principal); C50.912 Malignant neoplasm of unspecified site of left female breast
CPT/HCPCS: 36415; 80053; 85025; 86300

== ENCOUNTER → 2024-04-01 09:15 | Outpatient (CLI) | payer MEDICARE, MEDICAID, SELFPAY | PROVIDERS: PCP Family Medicine; Referring Provider Family Medicine; Visit Provider Family Medicine | DX: E03.8 Other specified hypothyroidism (principal) | CPT/HCPCS: 36415; 84443 ==

== ENCOUNTER → 2024-04-14 07:15 | Outpatient (CLI) | payer MEDICARE, MEDICAID, SELFPAY ==
[2024-04-14 08:12] LABS: Cholesterol 310 mg/dL (140-199); HDL Cholesterol 53 mg/dL (40-60); LDL Cholesterol Calculated 216 mg/dL (<100); Triglycerides 203 mg/dL (35-150)
== END ==
PROVIDERS: PCP Family Medicine; Referring Provider Family Medicine; Visit Provider Family Medicine
DX: E78.00 Pure hypercholesterolemia, unspecified (principal)
CPT/HCPCS: 36415; 80061

== ENCOUNTER → 2024-05-15 14:41 | Outpatient (CLI) | payer MEDICARE, MEDICAID, SELFPAY | PROVIDERS: Family Provider Family Medicine; PCP Family Medicine; Referring Provider Family Medicine; Visit Provider Family Medicine | DX: G62.9 Polyneuropathy, unspecified (principal); R20.2 Paresthesia of skin | CPT/HCPCS: 95886; 95910 ==

== ENCOUNTER → 2024-06-25 08:21 | Outpatient (CLI) | payer MEDICARE, MEDICAID, SELFPAY | PROVIDERS: Family Provider Family Medicine; PCP Family Medicine; Visit Provider Nurse Practitioner Family | DX: J02.9 Acute pharyngitis, unspecified (principal) | CPT/HCPCS: 87070 ==

== ENCOUNTER → 2024-06-25 08:41 | Outpatient (CLI) | payer MEDICARE, MEDICAID, SELFPAY ==
--- NOTE | 2024-06-25 08:42 | DI.RAD.S_ITS ---
PROCEDURE: XR CHEST 2V INDICATIONS: Cough TECHNIQUE: 2 views of the chest were acquired. COMPARISON: [facility], CT, CT CHEST ABDOMEN PELVIS WITH CONTRAST, 01/17/2022, 12:23. [facility], CR, XR CHEST 2V, 11/25/2021, 10:20. [facility], CR, XR CHEST 2V, 09/19/2019, 15:29. FINDINGS: Surgical changes and devices: None. Lungs and pleura: Lungs are clear. No pleural effusions or pneumothorax. Mediastinum: Moderate hiatal hernia. Mediastinal contours are otherwise normal. Heart size is normal. Bones and chest wall: No suspicious bony abnormalities. Soft tissues appear unremarkable. IMPRESSION: Moderate hiatal hernia. Otherwise, no acute cardiothoracic process. Dictated by: Pipe Soliz M.D. on 06/25/2024 at 11:30 Approved by: Pipe Soliz M.D. on 06/25/2024 at 11:32
== END ==
PROVIDERS: Family Provider Family Medicine; PCP Family Medicine; Referring Provider Nurse Practitioner Family; Visit Provider Nurse Practitioner Family
DX: J02.9 Acute pharyngitis, unspecified (principal); R05.9 Cough, unspecified; K44.9 Diaphragmatic hernia without obstruction or gangrene
CPT/HCPCS: 71046; 87070

== ENCOUNTER → 2024-11-29 09:14 | Outpatient (CLI) | payer MEDICARE, MEDICAID, SELFPAY ==
--- NOTE | 2024-11-29 09:16 | DI.MG.S_ITS ---
MM screening mammo unilat RT: 11/29/2024. BI-RADS: 2 CLINICAL: 74-year old female for right screening mammogram. No Tyrer-Cuzick risk score calculation due to the patient's personal history of breast cancer. Patient reports a history of left breast carcinoma diagnosed at age 65. Status-post left mastectomy with chemotherapy and hormonal therapy. No first-degree family history of breast cancer. The patient had a prior left breast biopsy. PRIOR EXAMS 08/10/2023, 07/31/2022, 07/30/2021, 11/01/2020, 04/07/2020, 09/19/2019, 09/01/2019, 06/27/2019, 12/09/2018, 05/27/2018, 05/08/2018. MAMMOGRAPHY TECHNIQUE: 2D and 3D (tomosynthesis) digital mammographic views obtained, with additional images as needed for full coverage. Current study was also evaluated with a Computer Aided Detection (CAD) system. DENSITY Right: C. The breasts are heterogeneously dense, which may obscure small masses. MAMMOGRAPHY FINDINGS Right: Benign-appearing calcification noted on the right. There are no suspicious masses, calcifications, or other findings in the breast. No significant change from comparison. IMPRESSION: Right * No evidence of malignancy with benign findings. RECOMMENDATIONS Right * Annual screening mammography. OVERALL ASSESSMENT CATEGORY BI-RADS-2: Benign. The [employer] recommends annual screening mammography beginning at age 40 for women with average risk of breast cancer. ELECTRONICALLY SIGNED: Thania Patel M.D. on 12/01/2024 at 02:21:21 PM PT Interpreting Station ID: [id number]
== END ==
PROVIDERS: Family Provider Family Medicine; PCP Family Medicine; Referring Provider Family Medicine; Visit Provider Family Medicine
DX: Z12.31 Encounter for screening mammogram for malignant neoplasm of breast (principal); Z85.3 Personal history of malignant neoplasm of breast; R92.331 Mammographic heterogeneous density, right breast
CPT/HCPCS: 77063; 77067

== ENCOUNTER 2024-12-25 07:13 | Emergency (ER) | payer MEDICARE, MEDICAID, SELFPAY ==
[2024-12-25] VITALS (13 sets, daily range): BP systolic 134–188; BP diastolic 71–104; PULSE 58–68; RESP 9–20; TEMP 36.6; O2SAT 97–100; BMI 27.6
--- NOTE | 2024-12-25 07:24 | EKG_ITS ---
[place] [id number] [place] [id number] Test Date: 2024-12-25 Pat Name: Darlin Sims Department: Room: Gender: Female Orthotic Technician: ERYN : 1950 Requested By: Order Number: [id number] Reading MD: Gage Bowers Measurements Intervals [place] Rate: 61 P: 20 CA: 186 QRS: -15 QRSD: 92 T: 12 QT: 438 QTc: 440 Interpretive Statements Normal sinus rhythm Moderate voltage criteria for LVH, may be normal variant ( R in aVL , Jac product ) Electronically Signed On 12-30-2024 20:08:24 PDT by Gage Bowers
--- NOTE | 2024-12-25 07:24 | DI.RAD.S_ITS ---
PROCEDURE: XR CHEST 1V INDICATIONS: chest pain TECHNIQUE: One view of the chest was acquired. COMPARISON: [facility], CR, XR CHEST 2V, 06/25/2024, 8:41. FINDINGS: Surgical changes and devices: Remote left mastectomy. Lungs and pleura: Lungs are clear. No pleural effusions or pneumothorax. Mediastinum: Mediastinal contours appear normal. Heart size is normal. Bones and chest wall: No suspicious bony lesions. Overlying soft tissues appear unremarkable. IMPRESSION: No acute cardiopulmonary abnormality is seen. Dictated by: Yunior Smith M.D. on 12/25/2024 at 8:18 Approved by: Yunior Smith M.D. on 12/25/2024 at 8:22
[2024-12-25 07:38] LABS: Add Manual Diff / Slide Review NO; Basophils Absolute Auto 100 /uL (0-100); Basophils Percent Auto 1.5 % (0-2); Eosinophils Absolute Auto 100 /uL (0-450); Eosinophils Percent Auto 2.1 % (2-4); Hematocrit 39.1 % (36-46); Hemoglobin 13.2 g/dL (12.0-16.0); Lymphocytes Absolute Auto 1200 /uL (1100-4500); Lymphocytes Percent Auto 29.2 % (25-40); Mean Corpuscular HGB Conc 33.8 % (30-36); Mean Corpuscular Hemoglobin 29.8 PG (26-34); Mean Corpuscular Volume 88.2 fL (80-100); Monocytes Absolute Auto 300 /uL (0-900); Monocytes Percent Auto 8.4 % (3-14); Neutrophils Absolute Auto 2400 /uL (1500-7000); Neutrophils Percent Auto 58.8 % (50-75); Platelet Count 282 X10^3/uL (150-400); Red Blood Cell Count 4.43 X10^6/uL (4.0-5.2); Red Cell Distribution Width 13.9 % (11.6-14.8); White Blood Cell Count 4.1 X10^3/uL (4.5-11.0)
[2024-12-25 07:45] LABS: Alanine Aminotransferase 30 IU/L (<35); Albumin 4.3 g/dL (3.5-5.0); Albumin Globulin Ratio 1.5 (1.0-2.8); Alkaline Phosphatase 104 U/L (38-126); Aspartate Aminotransferase 29 IU/L (14-36); BUN Creatinine Ratio 20.2 (6-22); Bilirubin Total 0.9 mg/dL (0.2-1.3); Blood Urea Nitrogen 17 mg/dL (7-17); Calcium 9.2 mg/dL (8.4-10.2); Carbon Dioxide 25 mmol/L (22-32); Chloride 107 mmol/L (98-107); Creatine Kinase 90 U/L (30-135); Estimated Glomerular Filt Rate > 60 mL/min (>60); Globulin 2.8 g/dL (1.7-4.1); Glucose 108 mg/dL (80-110); HEMOLYSIS < 15 (0-50); Lipase 213 U/L (23-300); Potassium 3.9 mmol/L (3.4-5.1); Sodium 140 mmol/L (137-145); Total Protein 7.1 g/dL (6.3-8.2)
[2024-12-25 07:57] LABS: Troponin I < 0.012 ng/mL (0.01-0.034)
[2024-12-25] MEDS: ASPIRIN 81 MG CHEW TAB 324 MG PO (07:58)
--- NOTE | 2024-12-25 08:10 | ED.CHESTPAIN ---
HPI - Chest Pain General Chief Complaint: Chest Pain Stated Complaint: Mild chest pain, SOB, left arm pain , dizziness Time Seen by Provider: 12/25/24 07:23 History of Present Illness HPI narrative: 74-year-old female with history of left breast cancer initial diagnosis 1998, prior left breast lumpectomy then later left total mastectomy 2012, radiation and chemotherapy 2019, followed by Oncology every 6 month visits, next oncology clinic visit scheduled later this month. No known history of chronic lung disease, coronary artery disease, congestive heart failure, use of inhalers. Complains of 2 week duration of shortness of breath that is fairly constant. No fevers or chills. Denies cough. She is concerned about recurrence of her cancer, concerned about possible metastases to the lungs causing her shortness of breath, concerned about possible blood clots to the lungs. No leg pain or swelling symptoms. No abdominal pain, nausea, vomiting. No chronic blood thinner medications. No prior blood clots to legs or lungs. Related Data Home Medications Medication Instructions Recorded Confirmed hydrochlorothiazide 25 mg tablet 25 mg PO DAILY 10/11/23 06/25/24 turmeric 400 mg capsule 200 mg PO DAILY 11/27/23 08/22/24 Previous Rx's Medication Instructions Recorded atorvastatin 20 mg tablet 20 mg PO DAILY #90 tabs 04/17/24 albuterol sulfate 90 mcg/actuation 2 puff inhalation Q6H PRN 12/25/24 aerosol inhaler shortness of breath or wheezing #8.5 grams doxycycline hyclate 100 mg capsule 100 mg PO BID #20 caps 12/25/24 Allergies Allergy/AdvReac Type Severity Reaction Status Date / Time amoxicillin AdvReac Intermediate Verified 08/22/24 14:01 Patient History Medical History (Updated 12/25/24 @ 10:09 by Tra Abad MD) Injury of left tibia Wears glasses (~2022) Chronic cough Neuropathy Allergies Restless leg syndrome Migraines Headache Sports injuries Shoulder pain Fractures Foot pain Mumps Measles Chicken pox Recurrent sinusitis Hearing loss (~2014) Painful menstrual periods Irregular menstrual cycle Heavy menstrual period Endometriosis (~1969) Hiatal hernia Irritable bowel syndrome GERD (gastroesophageal reflux disease) (~1999) Colitis Hx of thyroid nodule (~2018) Hx of radiation therapy Peripheral neuropathy Plantar wart Breast cancer (~1998) Surgical History Anesthesia History of partial hysterectomy (~1989) H/O lumpectomy (~1998) H/O mastectomy (~2012) Family History Father Congestive heart failure Hypertension Hyperlipidemia Mother Dementia Colon cancer Hyperlipidemia Hypertension Sister Cancer Hyperlipidemia Hypertension Grandfather Suicide Grandmother Congestive heart failure Hyperlipidemia Hypertension Grandfather Congestive heart failure Grandmother Congestive heart failure Social History household members: significant other alcohol intake: never substance use type: does not use Exam Narrative Exam Narrative: GENERAL: Well-developed patient, in mild distress. HEAD: Atraumatic. Normocephalic. EYES: Pupils equal round and reactive. Extraocular motions intact. No scleral icterus. No injection or drainage. ENT: Nose without bleeding, purulent drainage. Throat without erythema, tonsillar hypertrophy or exudate. Airway patent. NECK: Trachea midline. Non tender CARDIOVASCULAR: Regular rate and rhythm without murmurs, gallops, or rubs. RESPIRATORY: Clear to auscultation. Breath sounds equal bilaterally. No wheezes, rales, or rhonchi. Status post left total mastectomy. GASTROINTESTINAL: Abdomen soft, non-tender, nondistended. EXTREMITIES: No edema or joint tenderness. BACK: Nontender without deformity or crepitance. No flank tenderness. NEURO: AOx3. Motor functions grossly nonfocal. SKIN: No rash or erythema of visible areas Initial Vital Signs Initial Vital Signs: Vital Signs Pulse Rate 63 12/25/24 07:20 Pulse Oximetry 100 12/25/24 07:20 Course Orders Ordered: ED Orders 12/25/24 07:24 XR chest 1V Stat EKG-12 Lead Stat 12/25/24 07:26 Complete Blood Count AUTO DIFF Stat Comprehensive Metabolic Panel Stat Lipase Stat Troponin & CK Cardiac Panel Stat 12/25/24 08:56 CT angio chest PE protocol Stat Discontinued Medications Albuterol (Albuterol 2.5 Mg/3 Ml Neb (Adult)) 2.5 mg INH NOW ONE Stop: 12/25/24 09:43 Last Admin: 12/25/24 09:53 Dose: 2.5 mg Documented By: ERYN Aspirin (Aspirin 81 Mg Chew Tab) 324 mg PO NOW ONE Stop: 12/25/24 07:24 Last Admin: 12/25/24 07:58 Dose: 324 mg Documented By: ERYN Doxycycline Hyclate (Doxycycline Hyclate 100 Mg Tablet) 100 mg PO NOW ONE Stop: 12/25/24 09:43 Last Admin: 12/25/24 09:53 Dose: 100 mg Documented By: ERYN Sodium Chloride (Normal Saline 0.9%) 1,000 mls @ 500 mls/hr IV BOLUS ONE Stop: 12/25/24 10:56 Last Infusion: 12/25/24 10:15 Dose: Infused Documented By: Admin: 12/25/24 09:10 Dose: 500 mls/hr Documented By: ERYN Vital Signs Vital signs: Vital Signs - 8 hr 12/25/24 07:20 12/25/24 07:23 12/25/24 07:27 Temperature 97.8 F Pulse Rate 63 63 Respiratory Rate 20 Blood Pressure 188/87 H 153/104 H Pulse Oximetry 100 97 Oxygen Delivery Method Room Air 12/25/24 07:27 12/25/24 07:30 12/25/24 07:30 Temperature Pulse Rate 61 65 Respiratory Rate 17 12 Blood Pressure 134/84 Pulse Oximetry 99 97 Oxygen Delivery Method 12/25/24 08:00 12/25/24 08:01 12/25/24 08:01 Temperature Pulse Rate 67 68 Respiratory Rate 14 14 Blood Pressure 166/71 H Pulse Oximetry 97 97 Oxygen Delivery Method 12/25/24 08:30 12/25/24 08:31 12/25/24 08:31 Temperature Pulse Rate 60 59 L Respiratory Rate 19 18 Blood Pressure 175/74 H Pulse Oximetry 97 97 Oxygen Delivery Method 12/25/24 09:00 12/25/24 09:11 12/25/24 09:11 Temperature Pulse Rate 58 L 59 L Respiratory Rate 20 15 Blood Pressure 141/73 H Pulse Oximetry 98 99 Oxygen Delivery Method 12/25/24 09:30 12/25/24 09:30 12/25/24 10:00 Temperature Pulse Rate 67 Respiratory Rate 16 Blood Pressure 147/85 H 151/82 H Pulse Oximetry 98 Oxygen Delivery Method 12/25/24 10:00 12/25/24 10:14 Temperature Pulse Rate 66 Respiratory Rate 9 L 13 Blood Pressure Pulse Oximetry 100 Oxygen Delivery Method MDM - Chest Pain Lab Data Attestation: I reviewed the patient's lab results. Lab results narrative: White blood cell count 4100, hemoglobin 13.2, platelets 282,000. Glucose 108. BUN 17 with creatinine 0.84 normal renal function. Electrolytes unremarkable. Serum CO2 normal. Troponin negative/unmeasurable. Lipase normal. Liver functions unremarkable. 12/25/24 07:26 12/25/24 07:26 Labs: Lab Results 12/25/24 Range/Units 07:26 WBC 4.1 L (4.5-11.0) X10^3/uL RBC 4.43 (4.0-5.2) X10^6/uL Hgb 13.2 (12.0-16.0) g/dL Hct 39.1 (36-46) % MCV 88.2 (80-100) fL MCH 29.8 (26-34) PG MCHC 33.8 (30-36) % RDW 13.9 (11.6-14.8) % Plt Count 282 (150-400) X10^3/uL Neut % (Auto) 58.8 (50-75) % Lymph % (Auto) 29.2 (25-40) % Crenshaw % (Auto) 8.4 (3-14) % Eos % (Auto) 2.1 (2-4) % Baso % (Auto) 1.5 (0-2) % Neut # (Auto) 2400 (9408-5118) /uL Lymph # (Auto) 1200 (3811-4645) /uL Crenshaw # (Auto) 300 (0-900) /uL Eos # (Auto) 100 (0-450) /uL Baso # (Auto) 100 (0-100) /uL Sodium 140 (137-145) mmol/L Potassium 3.9 (3.4-5.1) mmol/L Chloride 107 (98-107) mmol/L Carbon Dioxide 25 (22-32) mmol/L BUN 17 (7-17) mg/dL Creatinine 0.84 (0.52-1.04) mg/dL Estimated GFR > 60 (>60) mL/min BUN/Creatinine Ratio 20.2 (6-22) Glucose 108 (80-110) mg/dL Calcium 9.2 (8.4-10.2) mg/dL Total Bilirubin 0.9 (0.2-1.3) mg/dL AST 29 (14-36) IU/L ALT 30 (<35) IU/L Alkaline Phosphatase 104 (38-126) U/L Total Creatine Kinase 90 (30-135) U/L Troponin I < 0.012 (0.01-0.034) ng/mL Total Protein 7.1 (6.3-8.2) g/dL Albumin 4.3 (3.5-5.0) g/dL Globulin 2.8 (1.7-4.1) g/dL Albumin/Globulin Ratio 1.5 (1.0-2.8) Lipase 213 (23-300) U/L ECG Data Attestation: I personally reviewed and interpreted this ECG as follows: Interpretation: Normal sinus rhythm with rate of 61, no obvious ST segment elevation or depression changes. T-wave inversion noted in lead 3, T-waves upright but diminished amplitude lead F and 2. UT 186, QRS 92, QTC 440. MDM Narrative Medical decision making narrative: 74-year-old female with history of left breast cancer status post prior mastectomy and radiation/XRT, with 2 weeks duration shortness of breath. Afebrile, sirs screen negative. Lungs clear. No lower extremity edema or tenderness or swelling. Patient concern about possible metastatic disease in her chest, and/or blood clot complications related to her prior cancer. No known history of CAD, COPD, asthma, CHF. Screening chest x-ray without obvious infiltrates or fluid overload per my wet read, awaiting Radiology over-read. EKG without obvious ischemic changes. Troponin negative/unmeasurable. Screening labs unremarkable. Renal function adequate. We will obtain CT angiogram chest. CT angiogram chest showed no pulmonary embolus, no lobar infiltrate, no fluid overload changes. But did describe atypical pneumonia/viral like changes. Radiology report. Copy of the printed report given to the patient with explanation of findings at bedside. PO doxycycline. SVN albuterol. Possible atypical pneumonia changes on CT scanning, versus viral, with 2 weeks' duration of increasing shortness of breath. Trial of antibiotics for atypical pneumonia coverage. First dose oral doxycycline given, prescription for further 10 day course. Also prescribed albuterol inhaler to use with spacer. Recheck symptoms in lungs advised with the regular doctor early next week. Return precautions discussed. Discharged home. Discharge Plan Departure Patient Disposition: Home Clinical Impression: Shortness of breath, Atypical pneumonia Activity Restrictions/Additional Instructions: History of breast cancer with prior chemotherapy. Two weeks duration of increasing shortness of breath, without predominance of coughing. No fever on triage. Normal oxygenation and lung exam on examination. Chest x-ray without acute changes obvious. Laboratory studies unremarkable. EKG and troponin blood testing not suggestive of heart attack at this time. No physical exam or imaging evidence for congestive heart failure. We discussed blood clots to the lungs, you wanted to pursue further imaging to make sure that was not present. CT angiogram of the chest was performed. There was no evidence of pulmonary embolus (blood clots to the lungs), however atypical pneumonia like changes were mentioned, based on the CT findings per the radiology report. This is often times not evident on plain x-rays. This might be the cause of your shortness of breath. Trial of antibiotic doxycycline, 1st dose now, further antibiotics to be sent as prescription to your pharmacy. Consider use of inhaler/spacer to help with shortness of breath symptoms as well. Follow up with your primary care provider advised if symptoms not improving in the next few days on above therapies. Follow up with your oncologist for breast cancer follow up as planned. Return earlier to this/nearest emergency department for any change worsening symptoms or any concerns prior. Prescriptions: New doxycycline hyclate 100 mg capsule 100 mg PO BID Qty: 20 0RF albuterol sulfate 90 mcg/actuation HFA aerosol inhaler 2 puff inhalation Q6H PRN (Reason: shortness of breath or wheezing) Qty: 8.5 0RF No Action atorvastatin 20 mg tablet 20 mg PO DAILY Qty: 90 3RF Hold Instructions: patient not taking hydrochlorothiazide 25 mg tablet 25 mg PO DAILY Hold Instructions: patient not taking turmeric 400 mg Capsule 200 mg PO DAILY Referrals: Barbara Mike DO [Primary Care Provider] - Stand Alone Forms: Patient Portal/API/Survey
--- NOTE | 2024-12-25 08:56 | DI.CT.S_ITS ---
PROCEDURE: CT ANGIO CHEST PE PROTOCOL INDICATIONS: dyspnea, hx L breast cancer TECHNIQUE: After the administration of intravenous contrast, 2 mm thick sections acquired from the pulmonary apices to the posterior costophrenic angles. 3-dimensional maximum intensity projection (MIP) coronal and sagittal reformats were then acquired through the thorax. For radiation dose reduction, the following was used: automated exposure control, adjustment of mA and/or kV according to patient size. COMPARISON: [facility], CR, XR CHEST 1V, 12/25/2024, 7:41. FINDINGS: Image quality: Diagnostic. Pulmonary arteries: Pulmonary arteries are normal in size, and demonstrate no intraluminal filling defects to suggest central pulmonary embolism. Lower Neck: No enlarged lymph nodes. Thyroid: The thyroid gland appears somewhat lobulated and heterogeneous internally, possibly a manifestation of multinodular goiter, mild in severity, without tracheal compression. Axillae: No enlarged lymph nodes. Chest Wall: Unremarkable. Bones: Unremarkable. Lungs and Pleura: No pneumothorax or pleural effusions. There is a alveolar patchy infiltration pattern, present bilaterally, in a pattern suspicious for atypical/viral pneumonia. Heart: Heart size is normal. No pericardial effusion. Thoracic Vessels: No aortic aneurysm. Mediastinum and [place]ur[place]: No enlarged lymph nodes. Esophagus: No wall thickening. Moderate hiatal hernia. Upper Abdomen: Visualized upper abdomen solid organs and bowel loops appear normal except for presence of mild fatty infiltration throughout the liver. The liver is not enlarged.. IMPRESSION: No pulmonary embolus. Suspect atypical/viral pneumonia bilaterally as etiology of current symptoms. Moderate hiatal hernia behind the heart. Mild fatty infiltration within the liver. Somewhat lobulated thyroid contour with heterogeneous radiodensity, likely representing multinodular goiter which would be more accurately assessed with ultrasound. No sign of tracheal compression. Dictated by: Juan Hussein M.D. on 12/25/2024 at 9:26 Approved by: Juan Hussein M.D. on 12/25/2024 at 9:30
[2024-12-25] MEDS: SODIUM CHLORIDE 0.9% 1,000 ML 500 ML IV (09:10)
[2024-12-25] MEDS: ALBUTEROL 2.5 MG/3 ML NEB (ADULT) INH (09:53)
[2024-12-25] MEDS: DOXYCYCLINE HYCLATE 100 MG TABLET PO (09:53)
--- NOTE | 2024-12-25 09:55 | PC.NURSE ---
left sided atypical chest pain; reports breast cancer 3x on left side w/ mastectomy. Pt states this pain has been ongoing.
--- NOTE | 2024-12-25 09:57 | PC.NURSE ---
pt reports the cp has been ongoing for 2 weeks and states she has also been dizzy w/ the cp
== END 2024-12-25 10:15 | disposition home or self-care (01) ==
PROVIDERS: Emergency Provider Emergency Medicine; Family Provider Family Medicine; PCP Family Medicine
DX: J18.9 Pneumonia, unspecified organism (principal); R06.02 Shortness of breath; Z85.3 Personal history of malignant neoplasm of breast
CPT/HCPCS: 71045; 71275; 80053; 82550; 83690; 84484; 85025; 93005; 96360; 99284; J7613

== ENCOUNTER → 2025-04-21 12:08 | Outpatient (CLI) | payer MEDICARE, MEDICAID, SELFPAY ==
--- NOTE | 2025-04-21 12:09 | DI.RAD.S_ITS ---
PROCEDURE: XR DEXA AXIAL SKELETON INDICATIONS: Osteoporosis screening. COMPARISON: [facility], , XR DEXA AXIAL SKELETON, 07/31/2022, 11:43. [facility], CR, XR DEXA AXIAL SKELETON, 09/01/2020, 13:22. FINDINGS: Lumbar Spine: Bone mineral density 1.030 g/cm2, T score -0.2, previously -0.3. Left Femoral Neck: Bone mineral density 0.770 g/cm2, T score -0.7. Left Hip: Bone mineral density 0.922 g/cm2, T score -0.2, previously -0.5. Fracture Risk Calculation (when applicable): Not reported due to normal bone mineralization. (T score greater or equal to -1.0 to: NORMAL) (T score from -1.1 to -2.4: OSTEOPENIA) (T score less than or equal to -2.5: OSTEOPOROSIS) IMPRESSION: Normal bone mineralization. Slightly increased T-scores of the left hip and lumbar spine compared with previous studies. Follow-up guidelines as follows: Osteoporosis: Consider a repeat DEXA and Vertebral Fracture Assessment (VFA) exam in 2 years or sooner if medically necessary, to reassess this patient's status. Osteopenia: Consider a repeat DEXA in 2-3 years to reassess this patient's status, or if there is a new clinical indication. Normal: Consider a repeat DEXA in 5 years or sooner, or if there is a new clinical indication. All treatment decisions require clinical judgment and consideration of individual patient factors, including patient preferences, comorbidities, previous drug use, risk factors not captured in the FRAX model (e.g., frailty, falls, vitamin D deficiency, increased bone turnover, interval significant decline in bone density ) and possible under- or over-estimation of fracture risk by FRAX. In addition, the NOF Guide recommends that FDA-approved medical therapies be considered in postmenopausal women and men age >= 50 years with a: * Hip or vertebral (clinical or morphometric) fracture * T-score of <=-2.5 at the spine or hip * Ten-year fracture probability by FRAX of >= 3% for hip fracture or >=20% for major osteoporotic fracture. Dictated by: Cristóbla Sims M.D. on 04/21/2025 at 14:20 Approved by: Cristóbal Sims M.D. on 04/21/2025 at 14:21
== END ==
LOC: RAD 12:09
PROVIDERS: PCP Family Medicine; Referring Provider Family Medicine; Visit Provider Family Medicine
DX: M85.89 Other specified disorders of bone density and structure, multiple sites (principal); Z78.0 Asymptomatic menopausal state
CPT/HCPCS: 77080

== ENCOUNTER → 2025-06-23 06:51 | Outpatient (CLI) | payer MEDICARE, MEDICAID, SELFPAY ==
--- NOTE | 2025-06-23 06:52 | DI.ECHO.S_ITS ---
[facility] +---------+ [facility] : : [id number] : [address] [place] : : [id number] : : Phone: [phone] Echocardiogram Report + + :Name: JAVIER AGARWAL Study Date: 06/23/2025 Height: 70 in : :Hospital ReadingLocation: Weight: 195 lb: : Gender: Female BSA: 2.1 m2 : :: 1950 Age: 74 yrs : :Reason For Study: DIZZINESS : :Ordering Physician: HAMMAD, : :JAYLON Performed By: Linwood Dalton : :Referring: JAYLON CUEVA : + + Interpretation Summary The ejection fraction is estimated to be 70-75%. Left ventricular wall thickness is mildly increased. The right ventricle is mildly dilated. The right ventricular systolic function is normal. There is mild mitral regurgitation. There is mild tricuspid regurgitation. The right ventricular systolic pressure is estimated to be at least 38 mmHg based on an estimated right atrial pressure of 3 mm Hg. Procedure: A two-dimensional transthoracic echocardiogram with color flow and Doppler was performed. The study quality was technically good. There is no prior echocardiogram noted for this patient. The patient was in normal sinus rhythm during the exam. Left Ventricle: The left ventricle is normal in size. Proximal septal thickening is noted. Left ventricular wall thickness is mildly increased. There is no ventricular septal defect visualized. The ejection fraction is estimated to be 70-75%. There are no focal wall motion abnormalities. Diastolic parameters suggest a relaxation abnormality of the left ventricle, consistent with probable normal filling pressures. Right Ventricle: The right ventricle is mildly dilated. The right ventricular systolic function is normal. Atria: The left atrium is mildly dilated. Right atrial size is normal. There is no Doppler evidence for an interatrial shunt. Mitral Valve: The mitral valve leaflets appear normal. There is no evidence of stenosis, fluttering, or prolapse. There is mild mitral regurgitation. Aortic Valve: The aortic valve is trileaflet. The aortic valve opens well. There is no aortic valve stenosis. No aortic regurgitation is present. Tricuspid Valve: The tricuspid valve leaflets are thin and pliable. There is mild tricuspid regurgitation. The right ventricular systolic pressure is estimated to be at least 38 mmHg based on an estimated right atrial pressure of 3 mm Hg. Pulmonic Valve: The pulmonic valve is not well seen, but is grossly normal. There is trace pulmonic regurgitation. Great Vessels: The aortic root is normal size. The dimensions of the ascending aorta are normal. The pulmonary artery is normal size. The IVC is of normal diameter and collapses greater than 50% with a sniff. This suggests a low right atrial pressure of 3 mm Hg. Pericardium/ Pleura There is no pericardial effusion. There is no pleural effusion. MMode/2D Measurements & Calculations LVIDd: 4.9 cm LVOT diam: 1.7 cm LVIDs: 2.6 cm Ao root diam: 3.0 cm FS: 46.2 % asc Aorta Diam: 3.3 cm EPSS: 0.20 cm Ao Arch Diam (Prox Trans): 2.0 cm IVSd: 1.3 cm LVPWd: 0.97 cm LV gregory. diameter/BSA (cm/m^2): 2.4 LV sys. diameter/BSA (cm/m^2): 1.3 LA A2 area: 25.9 cm2 RA long axis: 4.6 cm LA A4 area: 23.9 cm2 RA area: 17.8 cm2 LA length (vol): 5.7 cm RA vol: 58.7 ml LA vol: 92.3 ml RA : 28.4 ml/m2 LA vol index: 44.7 ml/m2 IVC diam: 2.1 cm RVD1 (basal): 4.1 cm RVD2 (mid): 2.2 cm TAPSE: 2.3 cm Doppler Measurements & Calculations Ao V2 max: 185.7 cm/sec LVOT Max Bogdan: 133.1 cm/sec Ao V2 mean: 139.4 cm/sec LV V1 max P.1 mmHg Ao max P.8 mmHg LV V1 VTI: 35.3 cm Ao mean P.5 mmHg NURIS(I,D): 1.9 cm2 Ao V2 VTI: 42.5 cm NURIS(V,D): 1.6 cm2 sev ratio: 0.83 NURIS indexed to BSA (cm^2/m^2): 0.91 MV E max bogdan: 63.5 cm/sec TR max bogdan: 296.5 cm/sec MV A max bogdan: 68.6 cm/sec TR max P.2 mmHg MV E/A: 0.93 PA V2 max: 119.9 cm/sec Med Peak E' Bogdan: 6.3 cm/sec PA V2 mean: 84.6 cm/sec E/E' med: 10.0 PA mean P.2 mmHg Lat Peak E' Bogdan: 5.1 cm/sec PA pr(Accel): 44.7 mmHg E/E' lat: 12.5 E/e' average: 11.2 MV dec time: 0.20 sec SV(LVOT): 79.9 ml Reading Physician:05:53 PM
== END ==
LOC: ECHO 06:51
PROVIDERS: PCP Family Medicine; Referring Provider Family Medicine; Visit Provider Family Medicine
DX: C50.919 Malignant neoplasm of unspecified site of unspecified female breast (principal); I08.1 Rheumatic disorders of both mitral and tricuspid valves; R42 Dizziness and giddiness; R06.09 Other forms of dyspnea; K21.9 Gastro-esophageal reflux disease without esophagitis; Z92.3 Personal history of irradiation; Z98.890 Other specified postprocedural states; Z87.19 Personal history of other diseases of the digestive system; Z86.39 Personal history of other endocrine, nutritional and metabolic disease
CPT/HCPCS: 93306

== ENCOUNTER → 2025-09-11 07:18 | Outpatient (CLI) | payer MEDICARE, MEDICAID, SELFPAY ==
[2025-09-11 08:14] LABS: Cholesterol 200 mg/dL (140-199); HDL Cholesterol 67 mg/dL (40-60); Triglycerides 199 mg/dL (35-150)
== END ==
PROVIDERS: PCP Family Medicine; Referring Provider Family Medicine; Visit Provider Family Medicine
DX: Z00.00 Encounter for general adult medical examination without abnormal findings (principal); E78.00 Pure hypercholesterolemia, unspecified
CPT/HCPCS: 36415; 80061